=== PATIENT | female | born 1990 | race Caucasian/White ===

== ENCOUNTER 2016-06-28 21:30 | Emergency (ER) | payer MEDICAID, OTHER, SELFPAY ==
[2016-06-28 21:43] VITALS: BP 134/98
[2016-06-28] MEDS ORDERED: Sodium Chloride 0.9% 1,000 ML IV ONE (22:05)
[2016-06-28] MEDS ORDERED: Ondansetron 4 MG/2 ML SDV IVPUSH ONE ×2 (22:05→22:46)
[2016-06-28] MEDS ORDERED: Sodium Chloride 0.9% 10 ML Syringe FLUSH PRN (22:05)
--- NOTE | 2016-06-28 22:16 | EDM.PDOC ---
ED HPI GI/ABDOMINAL - General Chief Complaint: Gastrointestinal Problem Stated Complaint: NAUSEA SOME BACK PAIN Time Seen by Provider: 06/28/16 21:45 Source of Information: Reports: Patient History Limitations: Reports: No limitations - History of Present Illness INITIAL COMMENTS - FREE TEXT/NARRATIVE: Presents for evaluation and treatment of nausea and epigastric pain radiating to the back. Patient reports that her symptoms started today. She reports nausea , epigastric abdominal pain radiating to the back and one episode of vomiting. She describes the pain as a crampy abdominal pain. She reports her last bowel movement was around 10 AM. She denies any blood in her stool. She denies any fevers, dysuria or hematuria. She reports that her urine has been darker than normal. Patient reports that her last menstrual period was quite some time ago. She has a mirena in. She states that this is been in for 5 years without any complications. Reports that her daughter was ill with a 24-hour flu recently. This resolved on its own. Patient reports she is healthy with no medical conditions. She's not any medications. Patient denies any recent travel. She denies any antibiotic usage. Patient denies any surgeries to her abdomen. 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 Denies: Diarrhea, Hematochezia, Melena : Denies: dysuria, hematuria Musculoskeletal: Reports: back pain ED EXAM, GI/ABD - Physical Exam Exam: See Below Exam Limited By: No limitations General Appearance: alert, WD/WN, no apparent distress Throat/Mouth: Normal inspection, Normal lips, Normal voice, No airway compromise Respiratory/Chest: no respiratory distress, lungs clear, normal breath sounds Cardiovascular: normal peripheral pulses, regular rate, rhythm, no murmur GI/Abdominal: normal bowel sounds, tenderness (suprapubic, epigastric). No: McBurney's sign, Thomas's sign Back Exam: normal inspection. No: CVA tenderness (L), CVA tenderness (R) Neurological: alert, oriented, normal cognition Psychiatric: normal affect, normal mood Skin Exam: Warm, Dry, Normal color Course - Vital Signs Last Recorded V/S: Last Vital Signs Temp 36.4 C 06/28/16 21:40 Pulse 111 H 06/28/16 21:40 Resp 16 06/28/16 21:40 BP 134/98 H 06/28/16 21:40 Pulse Ox 100 06/28/16 21:40 - Orders/Labs/Meds Orders: Active Orders 24 hr Category Date Time Status Peripheral IV Care [RC] . DIRECTED Care 06/28/16 22:05 Active Sodium Chloride 0.9% [Saline Flush] Med 06/28/16 22:05 Active 10 ml FLUSH ASDIRECTED PRN Peripheral IV Insertion Adult [OM.PC] Routine Oth 06/28/16 22:05 Ordered Medication Orders Sodium Chloride (Saline Flush) 10 ml FLUSH ASDIRECTED PRN PRN Reason: Keep Vein Open Last Admin: 06/28/16 22:21 Dose: 10 ml Labs: Laboratory Tests 06/28/16 06/28/16 06/28/16 Range/Units 21:49 22:15 22:15 WBC 10.26 H (3.98-10.04) K/mm3 RBC 5.24 H (3.98-5.22) M/mm3 Hgb 15.9 H (11.2-15.7) gm/L Hct 46.9 H (34.1-44.9) % MCV 89.5 (79.4-94.8) fl MCH 30.3 (25.6-32.2) pg MCHC 33.9 (32.2-35.5) g/dl RDW Std Deviation 39.2 (36.4-46.3) fL Plt Count 167 L (182-369) K/mm3 MPV 9.2 L (9.4-12.3) fl Neut % (Auto) 71.0 (34.0-71.1) % Lymph % (Auto) 19.5 (19.3-51.7) % Newton % (Auto) 7.8 (4.7-12.5) % Eos % (Auto) 0.5 L (0.7-5.8) Baso % (Auto) 0.6 (0.1-1.2) % Neut # (Auto) 7.29 H (1.56-6.13) K/mm3 Lymph # (Auto) 2.00 (1.18-3.74) K/mm3 Newton # (Auto) 0.80 H (0.24-0.36) K/mm3 Eos # (Auto) 0.05 (0.04-0.36) K/mm3 Baso # (Auto) 0.06 (0.01-0.08) K/mm3 Manual Slide Review Abnormal smear Sodium 133 L (136-145) mEq/L Potassium 3.8 (3.5-5.1) mEq/L Chloride 98 (98-107) mEq/L Carbon Dioxide 27 (21-32) mEq/L Anion Gap 11.8 (5-15) BUN 13 (7-18) mg/dL Creatinine 0.7 (0.55-1.02) mg/dL Est Cr Clr Drug Dosing 99.41 mL/min Estimated GFR (MDRD) > 60 (>60) mL/min BUN/Creatinine Ratio 18.6 H (14-18) Glucose 141 H (74-106) mg/dL Calcium 8.8 (8.5-10.1) mg/dL Total Bilirubin 0.3 (0.2-1.0) mg/dL GGT (5-55) U/L AST 157 H (15-37) U/L ALT 388 H (14-59) U/L Alkaline Phosphatase 150 H (46-116) U/L C-Reactive Protein 1.4 H* (<1.0) mg/dL Total Protein 8.1 (6.4-8.2) g/dl Albumin 4.0 (3.4-5.0) g/dl Globulin 4.1 gm/dL Albumin/Globulin Ratio 1.0 (1-2) Lipase (73-393) U/L HCG, Quant mIU/mL Urine Color Yellow (Yellow) Urine Appearance Slt cloudy H (Clear) Urine pH 6.0 (5.0-8.0) Ur Specific [place] > or = 1.030 (1.005-1.030) Urine Protein 2+ H (Negative) Urine Glucose (UA) Negative (Negative) Urine Ketones Negative (Negative) Urine Occult Blood Negative (Negative) Urine Nitrite Negative (Negative) Urine Bilirubin Negative (Negative) Urine Urobilinogen 0.2 (0.2-1.0) Ur Leukocyte Esterase Negative (Negative) Urine RBC Not seen (0-5) /hpf Urine WBC 0-5 (0-5) /hpf Ur Epithelial Cells Not Reportable Ur Squamous Epith Cells 10-20 H (0-5) /hpf Urine Bacteria Few (FEW) /hpf Urine Mucus Moderate H (FEW) /hpf 06/28/16 06/28/16 06/28/16 Range/Units 22:15 22:15 22:15 WBC (3.98-10.04) K/mm3 RBC (3.98-5.22) M/mm3 Hgb (11.2-15.7) gm/L Hct (34.1-44.9) % MCV (79.4-94.8) fl MCH (25.6-32.2) pg MCHC (32.2-35.5) g/dl RDW Std Deviation (36.4-46.3) fL Plt Count (182-369) K/mm3 MPV (9.4-12.3) fl Neut % (Auto) (34.0-71.1) % Lymph % (Auto) (19.3-51.7) % Newton % (Auto) (4.7-12.5) % Eos % (Auto) (0.7-5.8) Baso % (Auto) (0.1-1.2) % Neut # (Auto) (1.56-6.13) K/mm3 Lymph # (Auto) (1.18-3.74) K/mm3 [place] # (Auto) (0.24-0.36) K/mm3 Eos # (Auto) (0.04-0.36) K/mm3 Baso # (Auto) (0.01-0.08) K/mm3 Manual Slide Review Sodium (136-145) mEq/L Potassium (3.5-5.1) mEq/L Chloride (98-107) mEq/L Carbon Dioxide (21-32) mEq/L Anion Gap (5-15) BUN (7-18) mg/dL Creatinine (0.55-1.02) mg/dL Est Cr Clr Drug Dosing mL/min Estimated GFR (MDRD) (>60) mL/min BUN/Creatinine Ratio (14-18) Glucose (74-106) mg/dL Calcium (8.5-10.1) mg/dL Total Bilirubin (0.2-1.0) mg/dL GGT 94 H (5-55) U/L AST (15-37) U/L ALT (14-59) U/L Alkaline Phosphatase (46-116) U/L C-Reactive Protein (<1.0) mg/dL Total Protein (6.4-8.2) g/dl Albumin (3.4-5.0) g/dl Globulin gm/dL Albumin/Globulin Ratio (1-2) Lipase 177 (73-393) U/L HCG, Quant < 1.0 mIU/mL Urine Color (Yellow) Urine Appearance (Clear) Urine pH (5.0-8.0) Ur Specific [place] (1.005-1.030) Urine Protein (Negative) Urine Glucose (UA) (Negative) Urine Ketones (Negative) Urine Occult Blood (Negative) Urine Nitrite (Negative) Urine Bilirubin (Negative) Urine Urobilinogen (0.2-1.0) Ur Leukocyte Esterase (Negative) Urine RBC (0-5) /hpf Urine WBC (0-5) /hpf Ur Epithelial Cells Ur Squamous Epith Cells (0-5) /hpf Urine Bacteria (FEW) /hpf Urine Mucus (FEW) /hpf Meds: Medications Generic Name Dose Route Start Last Admin Trade Name Freq PRN Reason Stop Dose Admin Sodium Chloride 10 ml 06/28/16 22:05 06/28/16 22:21 Saline Flush FLUSH 10 ml ASDIRECTED PRN Administration Keep Vein Open Discontinued Medications Generic Name Dose Route Start Last Admin Trade Name Freq PRN Reason Stop Dose Admin Sodium Chloride 1,000 mls @ 999 mls/hr 06/28/16 22:05 06/28/16 22:21 Normal Saline IV 06/28/16 23:05 999 mls/hr ONETIME ONE Administration Ketorolac Tromethamine 30 mg 06/28/16 22:46 06/28/16 22:53 Toradol IVPUSH 06/28/16 22:47 30 mg ONETIME ONE Administration Ondansetron HCl 4 mg 06/28/16 22:05 06/28/16 22:20 Zofran IVPUSH 06/28/16 22:06 4 mg ONETIME ONE Administration Ondansetron HCl 4 mg 06/28/16 22:46 06/28/16 22:51 Zofran IVPUSH 06/28/16 22:47 4 mg ONETIME ONE Administration - Re-Assessments/Exams Free Text/Narrative Re-Assessment/Exam: 06/28/16 23:23 The patient's lab studies have returned. White blood cell count is mildly elevated at 10.26, hemoglobin is 15.9 and platelets are 167. Sodium is 133, potassium is 3.8 chloride is 98. Glucose is 141. UA has only 2+ protein. Negative for leukocytes and nitrates. CBC is mildly elevated 1.4. AST is elevated at 157, ALT is elevated at 388 and alkaline phosphatase is elevated at 150. GGT is mildly elevated at 94. Total bilirubin is normal at 0.3. Lipase is within normal limits a 1.77. HCG is negative at less than 1.0. I discussed the lab results with the patient. I feel she likely has a viral gastroenteritis. She should take Zofran as she has at home for nausea. Her symptoms should resolve within the next few days. I will have her followup with her primary care provider the end of this week to ensure that her liver enzymes are resolving and to make sure we're not missing any pathology associated with her gallbladder. She feels comfortable with this plan. Discharge instructions as documented. Departure - Departure Time of Disposition: 23:25 Disposition: Home, Self-Care 01 Condition: fair Clinical Impression: Gastroenteritis Referrals: PCP,None [Primary Care Provider] - Kaylie Helm SURFACING TECHNICIAN [Ordering Only Provider] - Forms: ED Department Discharge Additional Instructions: Rest and drink plenty of fluids. Zofran one 4mg tab sublingual every 6 hours as needed for nausea. [id number] ibuprofen as needed for pain relief. Avoid tylenol as this can be hard on your liver. Follow up with your primary care provider the end of this week. Please return to the ER should your symptoms change or worsen. - My Orders Last 24 Hours: My Active Orders 06/28/16 22:05 Peripheral IV Care [RC] . DIRECTED Sodium Chloride 0.9% [Saline Flush] 10 ml FLUSH ASDIRECTED PRN Peripheral IV Insertion Adult [OM.PC] Routine - Assessment/Plan Last 24 Hours: My Active Orders 06/28/16 22:05 Peripheral IV Care [RC] . DIRECTED Sodium Chloride 0.9% [Saline Flush] 10 ml FLUSH ASDIRECTED PRN Peripheral IV Insertion Adult [OM.PC] Routine
[2016-06-28] MEDS ORDERED: Ketorolac 30 MG/ML SDV IVPUSH ONE (22:46)
== END 2016-06-28 23:41 | disposition home or self-care (01) ==
LOC: JD.ED 21:30
DX: K52.9 Noninfective gastroenteritis and colitis, unspecified (principal); F17.200 Nicotine dependence, unspecified, uncomplicated
CPT/HCPCS: 36415; 80053; 81001; 82977; 83690; 84702; 85025; 86140; 96361; 96374; 96375; 96376; 99283; J1885; J2405; J7040; J7050; 99284

== ENCOUNTER 2016-09-11 19:05 | Emergency (ER) | payer MEDICAID, OTHER ==
[2016-09-11 19:17] VITALS: BP 142/107
--- NOTE | 2016-09-11 19:50 | EDM.PDOC ---
ED HPI GENERAL MEDICAL PROBLEM - General Chief Complaint: Skin Complaint Stated Complaint: BOIL ON FACE Time Seen by Provider: 09/11/16 19:12 Source of Information: Reports: Patient, RN Notes Reviewed History Limitations: Reports: No Limitations - History of Present Illness INITIAL COMMENTS - FREE TEXT/NARRATIVE: The patient states that she developed a skin boil to the medial aspect of her left eyebrow about 4 days ago. She states that she attempted to pop it by pinching it tonight, otherwise, she has been leaving it alone. The patient has a history of MRSA colonization. She had a lesion on her finger, which was swabbed in August 2015, and the swab returned as MRSA. She states that she uses antibacterial soap at home, otherwise, she does not have any identifiable risk factors for MRSA. No recent fever. The patient's PCP is Shantel Helm. 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: - Infectious Disease History Infectious Disease History: Reports: MRSA - Past Surgical History HEENT Surgical History: Reports: Naso-Sinus Surgery Social & Family History - Family History Family Medical History: Noncontributory - Tobacco Use Smoking Status *Q: Current Every Day Smoker Years of Tobacco use: 12 Packs/Tins Daily: 1 - Alcohol Use Alcohol Use History: Yes Days Per Week of Alcohol Use: 1 Number of Drinks Per Day: 2 Total Drinks Per Week: 2 Alcohol Use Frequency: Socially - Recreational Drug Use Recreational Drug Use: No - Living Situation & Occupation Living situation: Reports: Single, with Family (Daughter) Occupation: Employed ([employer]) ED ROS GENERAL - Review of Systems Review Of Systems: See Below Constitutional: Reports: No Symptoms HEENT: Reports: No Symptoms Respiratory: Reports: No Symptoms Cardiovascular: Reports: No Symptoms Endocrine: Reports: No Symptoms GI/Abdominal: Reports: No Symptoms : Reports: No Symptoms Musculoskeletal: Reports: No Symptoms Skin: Reports: No Symptoms Neurological: Reports: No Symptoms Psychiatric: Reports: No Symptoms Hematologic/Lymphatic: Reports: No Symptoms Immunologic: Reports: No Symptoms ED EXAM, SKIN/RASH Exam: See Below Exam Limited By: No Limitations General Appearance: Alert, WD/WN, No Apparent Distress Eye Exam: Bilateral Eye: Normal Inspection Ears: Normal External Exam, Hearing Grossly Normal Nose: Normal Inspection, No Blood Throat/Mouth: Normal Inspection, Normal Lips, Normal Voice, No Airway Compromise Head: Atraumatic, Normocephalic Neck: Normal Inspection, Supple, Full Range of Motion, Lymphadenopathy (L) ( slight). No: Lymphadenopathy (R) Skin: Warm, Dry, Intact, Normal Color, Other (Indurated furuncle within the medial aspect of the left eyebrow. No drainage.) Course - Vital Signs Last Recorded V/S: Last Vital Signs Temp 36.2 C 09/11/16 19:11 Pulse 102 H 09/11/16 19:11 Resp 16 09/11/16 19:11 BP 142/107 H 09/11/16 19:11 Pulse Ox 100 09/11/16 19:11 - Orders/Labs/Meds Labs: Laboratory Tests 09/11/16 Range/Units 19:33 MRSA (PCR) Positive H Meds: Medications Discontinued Medications Generic Name Dose Route Start Last Admin Trade Name Silverq PRN Reason Stop Dose Admin Trimethoprim/Sulfamethoxazole 1 tab 09/11/16 21:25 09/11/16 21:31 Septra Ds PO 09/11/16 21:26 1 tab ONETIME ONE Administration - Re-Assessments/Exams Free Text/Narrative Re-Assessment/Exam: 09/11/16 21:40 The patient's MRSA screen has returned positive. I will treat her furuncle with oral Bactrim x 1 week, and warm compresses. Departure - Departure Time of Disposition: 21:41 Disposition: Home, Self-Care 01 Condition: Good Clinical Impression: Furuncle of face, MRSA (methicillin resistant Staphylococcus aureus) colonization - Discharge Information Forms: ED Department Discharge Additional Instructions: You were seen in the emergency room for a boil within your left eyebrow. Your MRSA screen returned positive. This is likely because of your use of antibacterial soaps. You have been started on the antibiotic Bactrim. Take one tablet every 12 hours , as prescribed. Finish the entire prescription unless told otherwise by a doctor. Apply a warm compress to the boil for 10-15 minutes, 4-5 times a day, if possible. We recommend that you discard all of your antibacterial soaps. Wash with ordinary, non-antibacterial soap. Follow-up with your PCP, Shantel Helm, this coming week. If any other problems, please do not hesitate to return to the ER.
[2016-09-11] MEDS ORDERED: Sulfamethoxazole/Trimethoprim 800-160 MG Tab PO ONE (21:25)
== END 2016-09-11 22:00 | disposition home or self-care (01) ==
LOC: JD.ED 19:05
DX: L02.02 Furuncle of face (principal); F17.210 Nicotine dependence, cigarettes, uncomplicated; Z22.322 Carrier or suspected carrier of Methicillin resistant Staphylococcus aureus
CPT/HCPCS: 87641; 99283; A9270

== ENCOUNTER 2017-09-20 20:07 | Inpatient (IN) | payer MEDICAID, OTHER ==
[2017-09-20] MEDS ORDERED: Sodium Chloride 0.9% 10 ML Syringe FLUSH PRN (20:23)
[2017-09-20] MEDS ORDERED: SODIUM CHLORIDE 0.9% IV ONE (20:25)
[2017-09-20] MEDS ORDERED: VANCOMYCIN IV ONE (20:25)
[2017-09-20] MEDS ORDERED: Sodium Chloride 0.9% 1,000 ML IV SCH ×2 (20:30)
--- NOTE | 2017-09-20 20:33 | EDM.PDOC ---
ED HPI GENERAL MEDICAL PROBLEM - General Chief Complaint: Skin Complaint Stated Complaint: BUG BITE ON KNEE Time Seen by Provider: 09/20/17 20:20 Source of Information: Reports: Patient History Limitations: Reports: No Limitations - History of Present Illness INITIAL COMMENTS - FREE TEXT/NARRATIVE: Patient is a 27-year-old female presents ED complaining of an abscess to the right anterior medial knee. Patient reports the abscess started 4 days ago from a bug bite. 2 days ago she noted increased swelling in experience fever and chills. Yesterday experience nausea with increasing pain with ambulation. She is able to flex and extend at the knee with no increased pain noted. Redness has extended down her leg over the past few days. She has a history of MRSA 2. Patient denies any additional past medical history. She's not taking any medications currently. Surgical history noncontributory. Denies alcohol use. Denies any recreational drug use. She does smoke daily. Right Knee Pain Score (Numeric/FACES): 7 - Related Data Allergies Allergy/AdvReac Type Severity Reaction Status Date / Time No Known Allergies Allergy Verified 09/20/17 20:14 Home Meds: Home Meds Ibuprofen 600 mg PO ASDIRECTED PRN 09/20/17 [History] Past Medical History HEENT History: Reports: Impaired Vision Other HEENT History: Wears glasses [employer] History: Reports: Psychiatric History: Reports: Addiction - Infectious Disease History Infectious Disease History: Reports: MRSA - Past Surgical History HEENT Surgical History: Reports: Naso-Sinus Surgery Social & Family History - Family History Family Medical History: Noncontributory - Tobacco Use Smoking Status *Q: Current Every Day Smoker Years of Tobacco use: 14 Packs/Tins Daily: 0.5 - Caffeine Use Caffeine Use: Reports: Coffee, Energy Drinks, Tea - Recreational Drug Use Recreational Drug Use: Yes Drug Use in Last 12 Months: Yes Recreational Drug Type: Reports: Methamphetamine Recreational Drug Use Frequency: Daily - Living Situation & Occupation Living situation: Reports: Single, with Family (Daughter) 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 ED EXAM, SKIN/RASH Exam: See Below Exam Limited By: No Limitations General Appearance: Alert, WD/WN, No Apparent Distress Ears: Hearing Grossly Normal Nose: Normal Inspection Throat/Mouth: Normal Voice, No Airway Compromise Neck: Normal Inspection, Supple Respiratory/Chest: No Respiratory Distress, Lungs Clear, Normal Breath Sounds, No Accessory Muscle Use, Chest Non-Tender Cardiovascular: Normal Peripheral Pulses Extremities: Other (non draining lesion to the left medial/anterior knee with redness encompassing the anterior knee with extension of redness to foot. Pain with palpation. No pain with flexion/extension of the kne. ) Neurological: Alert, Oriented, CN II-XII Intact, Normal Cognition, No Motor/ Sensory Deficits Psychiatric: Normal Affect, Normal Mood Skin: Erythema, Increased Warmth, Wound/Incision Location, Skin: Lower Extremity, Right Associated features: Warmth, Tenderness, Swelling, Induration, Inflammation Course - Vital Signs Last Recorded V/S: Last Vital Signs Temp 98.8 F 09/22/17 08:02 Pulse 86 09/22/17 08:02 Resp 16 09/22/17 08:02 BP 118/77 09/22/17 08:02 Pulse Ox 97 09/22/17 08:02 - Orders/Labs/Meds Orders: Medication Orders Acetaminophen (Tylenol) 650 mg PO Q6H PRN PRN Reason: Pain/Fever Last Admin: 09/21/17 22:00 Dose: 650 mg Chlordiazepoxide HCl (Librium) 10 mg PO BID [facility] Last Admin: 09/21/17 21:40 Dose: 10 mg Admin: 09/21/17 09:25 Dose: 10 mg Enoxaparin Sodium (Lovenox) 40 mg SUBCUT DAILY [facility] Last Admin: 09/21/17 09:25 Dose: 40 mg Levofloxacin/Dextrose 750 mg/ (Premix) 150 mls @ 100 mls/hr IV Q24H [facility] Last Admin: 09/21/17 22:00 Dose: 100 mls/hr Vancomycin HCl 1 gm/ Sodium (Chloride) 250 mls @ 250 mls/hr IV Q12H [facility] Last Admin: 09/22/17 02:23 Dose: 250 mls/hr Infusion: 09/21/17 12:19 Dose: 250 mls/hr Admin: 09/21/17 11:19 Dose: 250 mls/hr Magnesium Sulfate 2 gm/ Premix 50 mls @ 25 mls/hr IV ONETIME ONE Stop: 09/22/17 08:59 Ibuprofen (Motrin) 600 mg PO Q8H PRN PRN Reason: Pain Lorazepam (Ativan) 2 mg IVPUSH Q4H PRN PRN Reason: Seizures Metoprolol Tartrate (Lopressor) 5 mg IVPUSH Q6H PRN PRN Reason: tachycardia Miscellaneous Information (Remove Patch) 0 ea TRDERM DAILY [facility] Nicotine (Habitrol) 14 mg TRDERM DAILY [facility] Last Admin: 09/21/17 14:59 Dose: Not Given Ondansetron HCl (Zofran) 4 mg IVPUSH Q8H PRN PRN Reason: Nausea Ondansetron HCl (Zofran Odt) 4 mg PO Q6H PRN PRN Reason: nausea, able to take PO Saccharomyces Boulardii (Florastor) 250 mg PO BID [facility] Last Admin: 09/21/17 21:41 Dose: 250 mg Admin: 09/21/17 11:19 Dose: 250 mg Sodium Chloride (Saline Flush) 10 ml FLUSH ASDIRECTED PRN PRN Reason: Keep Vein Open Vancomycin HCl (Pharmacy To Dose - Vancomycin) 1 dose .XX ASDIRECTED [facility] Labs: Laboratory Tests 09/20/17 09/20/17 09/20/17 Range/Units 21:00 21:30 21:30 WBC 10.13 H (3.98-10.04) K/mm3 RBC 3.51 L (3.98-5.22) M/mm3 Hgb 10.7 L (11.2-15.7) gm/L Hct 32.2 L (34.1-44.9) % MCV 91.7 (79.4-94.8) fl MCH 30.5 (25.6-32.2) pg MCHC 33.2 (32.2-35.5) g/dl RDW Std Deviation 38.5 (36.4-46.3) fL Plt Count 257 (182-369) K/mm3 MPV 9.1 L (9.4-12.3) fl Neut % (Auto) 75.6 H (34.0-71.1) % Lymph % (Auto) 15.4 L (19.3-51.7) % [place] % (Auto) 8.1 (4.7-12.5) % Eos % (Auto) 0.7 (0.7-5.8) Baso % (Auto) 0.1 (0.1-1.2) % Neut # (Auto) 7.66 H (1.56-6.13) K/mm3 Lymph # (Auto) 1.56 (1.18-3.74) K/mm3 [place] # (Auto) 0.82 H (0.24-0.36) K/mm3 Eos # (Auto) 0.07 (0.04-0.36) K/mm3 Baso # (Auto) 0.01 (0.01-0.08) K/mm3 Sodium 139 (136-145) mEq/L Potassium 3.6 (3.5-5.1) mEq/L Chloride 102 (98-107) mEq/L Carbon Dioxide 29 (21-32) mEq/L Anion Gap 11.6 (5-15) BUN 17 (7-18) mg/dL Creatinine 0.8 (0.55-1.02) mg/dL Est Cr Clr Drug Dosing 82.55 mL/min Estimated GFR (MDRD) > 60 (>60) mL/min BUN/Creatinine Ratio 21.3 H (14-18) Glucose 117 H (74-106) mg/dL Lactic Acid (0.4-2.0) mmol/L Calcium 8.7 (8.5-10.1) mg/dL Total Bilirubin 0.2 (0.2-1.0) mg/dL AST 18 (15-37) U/L ALT 26 (14-59) U/L Alkaline Phosphatase 78 (46-116) U/L C-Reactive Protein 11.0 H* (<1.0) mg/dL Total Protein 7.0 (6.4-8.2) g/dl Albumin 3.2 L (3.4-5.0) g/dl Globulin 3.8 gm/dL Albumin/Globulin Ratio 0.8 L (1-2) HCG, Qual (NEGATIVE) Urine Opiates Screen (NEGATIVE) Ur Buprenorphine Scrn (NEGATIVE) Ur Oxycodone Screen (NEGATIVE) Urine Methadone Screen (NEGATIVE) Ur Propoxyphene Screen (NEGATIVE) Ur Barbiturates Screen (NEGATIVE) Ur Tricyclics Screen (NEGATIVE) Ur Phencyclidine Scrn (NEGATIVE) Ur Amphetamine Screen (NEGATIVE) U Methamphetamines Scrn (NEGATIVE) U Benzodiazepines Scrn (NEGATIVE) U Cocaine Metab Screen (NEGATIVE) U Marijuana (THC) Screen (NEGATIVE) Ethyl Alcohol (0.00) gm% MRSA (PCR) Positive H 09/20/17 09/20/17 09/20/17 Range/Units 21:30 21:30 21:30 WBC (3.98-10.04) K/mm3 RBC (3.98-5.22) M/mm3 Hgb (11.2-15.7) gm/L Hct (34.1-44.9) % MCV (79.4-94.8) fl MCH (25.6-32.2) pg MCHC (32.2-35.5) g/dl RDW Std Deviation (36.4-46.3) fL Plt Count (182-369) K/mm3 MPV (9.4-12.3) fl Neut % (Auto) (34.0-71.1) % Lymph % (Auto) (19.3-51.7) % [place] % (Auto) (4.7-12.5) % Eos % (Auto) (0.7-5.8) Baso % (Auto) (0.1-1.2) % Neut # (Auto) (1.56-6.13) K/mm3 Lymph # (Auto) (1.18-3.74) K/mm3 [place] # (Auto) (0.24-0.36) K/mm3 Eos # (Auto) (0.04-0.36) K/mm3 Baso # (Auto) (0.01-0.08) K/mm3 Sodium (136-145) mEq/L Potassium (3.5-5.1) mEq/L Chloride (98-107) mEq/L Carbon Dioxide (21-32) mEq/L Anion Gap (5-15) BUN (7-18) mg/dL Creatinine (0.55-1.02) mg/dL Est Cr Clr Drug Dosing mL/min Estimated GFR (MDRD) (>60) mL/min BUN/Creatinine Ratio (14-18) Glucose (74-106) mg/dL Lactic Acid 0.5 (0.4-2.0) mmol/L Calcium (8.5-10.1) mg/dL Total Bilirubin (0.2-1.0) mg/dL AST (15-37) U/L ALT (14-59) U/L Alkaline Phosphatase (46-116) U/L C-Reactive Protein (<1.0) mg/dL Total Protein (6.4-8.2) g/dl Albumin (3.4-5.0) g/dl Globulin gm/dL Albumin/Globulin Ratio (1-2) HCG, Qual Negative (NEGATIVE) Urine Opiates Screen (NEGATIVE) Ur Buprenorphine Scrn (NEGATIVE) Ur Oxycodone Screen (NEGATIVE) Urine Methadone Screen (NEGATIVE) Ur Propoxyphene Screen (NEGATIVE) Ur Barbiturates Screen (NEGATIVE) Ur Tricyclics Screen (NEGATIVE) Ur Phencyclidine Scrn (NEGATIVE) Ur Amphetamine Screen (NEGATIVE) U Methamphetamines Scrn (NEGATIVE) U Benzodiazepines Scrn (NEGATIVE) U Cocaine Metab Screen (NEGATIVE) U Marijuana (THC) Screen (NEGATIVE) Ethyl Alcohol 0.00 (0.00) gm% MRSA (PCR) 09/20/17 Range/Units 22:55 WBC (3.98-10.04) K/mm3 RBC (3.98-5.22) M/mm3 Hgb (11.2-15.7) gm/L Hct (34.1-44.9) % MCV (79.4-94.8) fl MCH (25.6-32.2) pg MCHC (32.2-35.5) g/dl RDW Std Deviation (36.4-46.3) fL Plt Count (182-369) K/mm3 MPV (9.4-12.3) fl Neut % (Auto) (34.0-71.1) % Lymph % (Auto) (19.3-51.7) % [place] % (Auto) (4.7-12.5) % Eos % (Auto) (0.7-5.8) Baso % (Auto) (0.1-1.2) % Neut # (Auto) (1.56-6.13) K/mm3 Lymph # (Auto) (1.18-3.74) K/mm3 [place] # (Auto) (0.24-0.36) K/mm3 Eos # (Auto) (0.04-0.36) K/mm3 Baso # (Auto) (0.01-0.08) K/mm3 Sodium (136-145) mEq/L Potassium (3.5-5.1) mEq/L Chloride (98-107) mEq/L Carbon Dioxide (21-32) mEq/L Anion Gap (5-15) BUN (7-18) mg/dL Creatinine (0.55-1.02) mg/dL Est Cr Clr Drug Dosing mL/min Estimated GFR (MDRD) (>60) mL/min BUN/Creatinine Ratio (14-18) Glucose (74-106) mg/dL Lactic Acid (0.4-2.0) mmol/L Calcium (8.5-10.1) mg/dL Total Bilirubin (0.2-1.0) mg/dL AST (15-37) U/L ALT (14-59) U/L Alkaline Phosphatase (46-116) U/L C-Reactive Protein (<1.0) mg/dL Total Protein (6.4-8.2) g/dl Albumin (3.4-5.0) g/dl Globulin gm/dL Albumin/Globulin Ratio (1-2) HCG, Qual (NEGATIVE) Urine Opiates Screen Negative (NEGATIVE) Ur Buprenorphine Scrn Negative (NEGATIVE) Ur Oxycodone Screen Negative (NEGATIVE) Urine Methadone Screen Negative (NEGATIVE) Ur Propoxyphene Screen Negative (NEGATIVE) Ur Barbiturates Screen Negative (NEGATIVE) Ur Tricyclics Screen Negative (NEGATIVE) Ur Phencyclidine Scrn Negative (NEGATIVE) Ur Amphetamine Screen Presumptive positive H (NEGATIVE) U Methamphetamines Scrn Presumptive positive H (NEGATIVE) U Benzodiazepines Scrn Negative (NEGATIVE) U Cocaine Metab Screen Negative (NEGATIVE) U Marijuana (THC) Screen Presumptive positive H (NEGATIVE) Ethyl Alcohol (0.00) gm% MRSA (PCR) Meds: Medications Generic Name Dose Route Start Last Admin Trade Name Freq PRN Reason Stop Dose Admin Acetaminophen 650 mg 09/21/17 00:10 09/21/17 22:00 Tylenol PO 650 mg Q6H PRN Administration Pain/Fever Chlordiazepoxide HCl 10 mg 09/21/17 09:00 09/21/17 21:40 Librium PO 10 mg BID [facility] Administration Enoxaparin Sodium 40 mg 09/21/17 09:00 09/21/17 09:25 Lovenox SUBCUT 40 mg DAILY [facility] Administration Levofloxacin/Dextrose 750 mg/ 150 mls @ 100 mls/hr 09/21/17 23:00 07/05/18 22 :00 Premix IV 100 mls/hr Q24H [facility] Administration Vancomycin HCl 1 gm/ Sodium 250 mls @ 250 mls/hr 09/21/17 11:30 09/22/17 02: 23 Chloride IV 250 mls/hr Q12H [facility] Administration Magnesium Sulfate 2 gm/ Premix 50 mls @ 25 mls/hr 09/22/17 07:00 IV 09/22/17 08:59 ONETIME ONE Ibuprofen 600 mg 09/21/17 00:07 Motrin PO Q8H PRN Pain Lorazepam 2 mg 09/21/17 07:24 Ativan IVPUSH Q4H PRN Seizures Metoprolol Tartrate 5 mg 09/21/17 00:11 Lopressor IVPUSH Q6H PRN tachycardia Miscellaneous Information 0 ea 09/22/17 09:00 Remove Patch TRDERM DAILY [facility] Nicotine 14 mg 09/21/17 13:30 09/21/17 14:59 Habitrol TRDERM Not Given DAILY [facility] Ondansetron HCl 4 mg 09/21/17 00:07 Zofran IVPUSH Q8H PRN Nausea Ondansetron HCl 4 mg 09/21/17 11:39 Zofran Odt PO Q6H PRN nausea, able to take PO Saccharomyces Boulardii 250 mg 09/21/17 11:00 09/21/17 21:41 Florastor PO 250 mg BID [facility] Administration Sodium Chloride 10 ml 09/20/17 20:23 Saline Flush FLUSH ASDIRECTED PRN Keep Vein Open Vancomycin HCl 1 dose 09/21/17 10:45 Pharmacy To Dose - Vancomycin .XX ASDIRECTED [facility] Discontinued Medications Generic Name Dose Route Start Last Admin Trade Name Freq PRN Reason Stop Dose Admin Sodium Chloride 1,000 mls @ 999 mls/hr 09/20/17 20:30 09/20/17 21:28 Normal Saline IV 999 mls/hr ASDIRECTED [facility] Administration Sodium Chloride 1,000 mls @ 999 mls/hr 09/20/17 20:30 Normal Saline IV ASDIRECTED [facility] Vancomycin HCl 1 gm/ Sodium 250 mls @ 250 mls/hr 09/20/17 20:25 09/20/17 21: 51 Chloride IV 09/20/17 21:24 250 mls/hr ONETIME ONE Administration Vancomycin HCl 0.25 gm/ Sodium 250 mls @ 250 mls/hr 09/20/17 20:25 09/20/17 23:02 Chloride IV 09/20/17 21:24 Not Given ONETIME ONE Sodium Chloride Confirm 09/20/17 20:36 09/20/17 20:55 Normal Saline Administered 09/20/17 20:37 Not Given Dose 250 mls @ as directed .ROUTE .STK-MED ONE Sodium Chloride Confirm 09/20/17 22:09 09/20/17 23:14 Normal Saline Administered 09/20/17 22:10 Not Given Dose 250 mls @ as directed .ROUTE .STK-MED ONE Levofloxacin/Dextrose 750 mg/ 150 mls @ 100 mls/hr 09/21/17 00:12 09/21/17 01 :21 Premix IV 09/21/17 01:41 100 mls/hr ONETIME ONE Administration Vancomycin HCl Confirm 09/20/17 20:35 09/20/17 20:55 Vancocin Administered 09/20/17 20:36 Not Given Dose 1 gm .ROUTE .STK-MED ONE Vancomycin HCl Confirm 09/20/17 22:09 09/20/17 23:00 Vancomycin Administered 09/20/17 22:10 Not Given Dose 500 mg .ROUTE .STK-MED ONE - Re-Assessments/Exams Free Text/Narrative Re-Assessment/Exam: Patient meets sepsis criteria. She has a draining abscess to the right knee with extensive redness extending down to her foot. Peripheral IV started with 2 L of normal saline bolus. Ordered vancomycin 1250 mg IV. Initial labs and studies include CBC, chem 14, CRP, blood cultures 2, left gastric, and MRSA swab nasal. There is no active drainage from the abscess to the right knee. 2031 nursing staff has brought to my attention that the patient admits to IV methamphetamine use daily. This was not initially divulged to me during history taking. Patient admits using half gram every day. She injects into her arms bilaterally. Denies injecting into her feet, hands, legs, or any additional parts of her body. Labs have not resulted yet. It will not change my treatment course. Patient requires admission to the hospital. 09/20/17 21:50 I did discuss the patient with Dr. Gunn reconditioner hospitalist. She request x-ray of the right knee in addition to additional labs. I failed to order urine drug tox and serum EtOH upon notification that the patient is a IV drug user. This has been ordered. In addition urine hCG has been changed to serum. CIWAA assessment has been ordered. X-ray of the knee: reviewed with Dr. Cifuentes. No concerning findings for osteomyelitis. Final interpretation is pending. 2205 CIWAA Score: 0 Labs reviewed: White blood cell count 10.13, hemoglobin 10.7, neutrophil percent is 75.6, N #[id number]. Cancer panel essentially normal. CRP 11.0. Serum EtOH 0.00. HCG is pending. UA has not been obtained thus no urine drug tox screen. 2300 Lactic acid WNL. HCG Negative. Serology was positive for MRSA. 09/20/17 23:[address] Gunn. She has agreed to admit the patient to [facility] with telemetry. Request adding Levaquin 500 mg IV. Departure - Departure Time of Disposition: 22:49 Disposition: Admitted As Inpatient 64 Condition: Good Clinical Impression: Multiple-resistant Staphylococcus aureus infection, Methamphetamine addiction Cellulitis Qualifiers: Site of cellulitis: extremity Site of cellulitis of extremity: lower extremity Laterality: right Qualified Code(s): L03.115 - Cellulitis of right lower limb - Discharge Information
[2017-09-20] MEDS ORDERED: Vancomycin 1 GM AdvVial ONE (20:35)
[2017-09-20] MEDS ORDERED: Sodium Chloride 0.9% 250 ML ONE ×2 (20:36→22:09)
[2017-09-20] MEDS ORDERED: Vancomycin 500 MG SDV ONE (22:09)
[2017-09-20] MEDS ORDERED: Levofloxacin/Dextrose 5%-Water 500 MG in Premix Bag 1 BAG IV ONE (22:58)
[2017-09-21] MEDS ORDERED: Ondansetron 4 MG/2 ML SDV IVPUSH PRN (00:07)
[2017-09-21] MEDS ORDERED: Ibuprofen 600 MG Tab PO PRN (00:07)
[2017-09-21] MEDS ORDERED: Acetaminophen 325 MG Tab PO PRN (00:10)
[2017-09-21] MEDS ORDERED: Metoprolol Tartrate 5 MG/5 ML SDV IVPUSH PRN (00:11)
[2017-09-21] MEDS ORDERED: Levofloxacin/Dextrose 5%-Water 750 MG in Premix Bag 1 BAG IV ONE (00:12)
[2017-09-21] MEDS ORDERED: LORazepam 2 MG/ML SDV IVPUSH PRN (07:24)
--- NOTE | 2017-09-21 08:40 | CR ---
Right knee: Four views of the right knee were obtained. Comparison: No previous knee exam. Medial and lateral joint spaces are maintained in height. Good lateral view was not obtained. No discrete fracture or other bony abnormality is seen. Impression: 1. Good lateral view was not obtained. Within this limitation, no abnormality is appreciated on right knee exam. Diagnostic code #2
[2017-09-21] MEDS: Enoxaparin 40 MG/0.4 ML Syringe SUBCUT SCH (09:25)
[2017-09-21] MEDS: chlordiazePOXIDE 10 MG Cap PO SCH ×2 (09:25→21:40)
[2017-09-21] MEDS: Saccharomyces Boulardii (Probiotic) 250 MG Cap PO SCH ×2 (11:19→21:41)
[2017-09-21] MEDS ORDERED: Ondansetron 4 MG Tab.DIS PO PRN (11:39)
--- NOTE | 2017-09-21 13:18 | PCM.HP ---
H&P History of Present Illness - General Date of Service: 09/21/17 Admit Problem/Dx: Admission Diagnosis/Problem Admission Diagnosis/Problem Cellulitis Source of Information: Patient, Old Records, Provider, RN, RN Notes Reviewed History Limitations: Reports: No Limitations - History of Present Illness Initial Comments - Free Text/Narative: Mishel Weinstein is a 27 yo female who presented to our ED last night (09/20/17) with a bug bite on her right knee. She reports she noticed an abscess on the right anterior medial knee 4 days ago. Two days prior to presenting to the ED she noticed increased swelling and began to have fever and chills. the day before her ER visit she noticed nausea and worsening pain with ambulation. She can flex and extend the knee with no increased pa. She does have redness down her leg which is present for several days. Does have a history of MRSA infection 2. Denies any additional past history. Not taking any current medications. No surgical history. Denies any alcohol. She initially denies and IV drug use however later in her ED visit she does admit to IV methamphetamine use. he states she uses a half gram daily injecting it into either arm. Denies injecting into her feet, hands, legs, or any other body parts. in the ED temp was 98.8F. Pulse 108. Respirations 16. Blood pressure 134/ 85. Pulse ox 99%. Labs are obtained: WBC is elevated at 10.13. Hemoglobin low at 10.7. Hematocrit 32.2. She is normocytic. Platelet is good at 257, 000. Neutrophils elevated at 75.6%. sodium was good at 139. Potassium 3.6. Chloride 102. Carbon dioxide 29. Anion gap was good at 11.6. BUN is 17. Creatinine 0.8. GFR is greater than 60. Glucose is slightly high at 117. Calcium is 8.7. Total bilirubin 0.2. liver enzymes looked good with AST of 18, ALT at 26, alkaline phosphatase 78. CRP is quite high at 11. Protein good at 7.0. Albumin low at 3.2. MRSA screen was positive. Lactic acid was 0.5. Qualitative hCG was negative. Ethyl alcohol was 0.00. Urine drug screen was obtained and was positive for amphetamines, methamphetamine, and marijuana. This was sent for confirmation. She was started on Levaquin and vancomycin. She was given a 2 L saline bolus. There is no active drainage from the right knee. X-ray of the knee was obtained and reviewed by the ED providers. There is no concern for osteomyelitis noted. CIWA score was also obtained and was 0. he denies any medical or surgical history. She is a current every day smoker. She is a full code. Her PCP is Kaylie Helm. 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: Psychiatric History: Reports: Addiction Other Psychiatric History: IV meth user for the past three years - Infectious Disease History Infectious Disease History: Reports: MRSA - Past Surgical History HEENT Surgical History: Reports: Naso-Sinus Surgery Social & Family History - Family History Family Medical History: Noncontributory - Tobacco Use Smoking Status *Q: Current Every Day Smoker Years of Tobacco use: 15 Packs/Tins Daily: 0.5 - Caffeine Use Caffeine Use: Reports: Coffee, Energy Drinks, Soda, Tea - Recreational Drug Use Recreational Drug Use: Yes Drug Use in Last 12 Months: Yes Recreational Drug Type: Reports: Marijuana/Hashish, Methamphetamine Recreational Drug Use Frequency: Daily - Living Situation & Occupation Living situation: Reports: Single, with Family (Daughter) 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 Denies: Fever, Chills, Malaise, Weakness, Fatigue HEENT: Reports: No Symptoms. Denies: Eye Pain, Post Nasal Drip, Visual Changes Pulmonary: Reports: No Symptoms. Denies: Shortness of Breath, Wheezing, Pleuritic Chest Pain, Cough, Sputum Cardiovascular: Reports: No Symptoms. Denies: Chest Pain, Palpitations, Dyspnea on Exertion, Edema, Lightheadedness Gastrointestinal: Reports: No Symptoms. Denies: Abdominal Pain, Anorexia, Constipation, Diarrhea, Nausea, Vomiting Genitourinary: Reports: No Symptoms Musculoskeletal: Reports: No Symptoms. Denies: Neck Pain, Shoulder Pain, Arm Pain, Back Pain, Leg Pain, Joint Pain, Joint Swelling Skin: Reports: No Symptoms. Denies: Cyanosis Psychiatric: Reports: No Symptoms. Denies: Confusion, Depression Neurological: Reports: No Symptoms Hematologic/Lymphatic: Reports: No Symptoms Immunologic: Reports: No Symptoms Exam - Exam Exam: See Below - Vital Signs Vital Signs: Last Vital Signs Temp 98.6 F 09/21/17 11:23 Pulse 90 09/21/17 09:24 Resp 14 09/21/17 11:23 BP 122/79 09/21/17 11:23 Pulse Ox 97 09/21/17 09:24 Weight: 112 lb 11.2 oz - Exam Quality Assessment: DVT Prophylaxis General: Alert, Oriented, Cooperative. No: Mild Distress HEENT: Conjunctiva Clear, EACs Clear, EOMI, Hearing Intact, Mucosa Moist & [place] , Posterior Pharynx Clear, PERRLA. No: Nares Patent, Normal Nasal Septum Neck: Supple, Trachea Midline. No: JVD Lungs: Clear to Auscultation, Normal Respiratory Effort Cardiovascular: Regular Rate, Regular Rhythm GI/Abdominal Exam: Normal Bowel Sounds, Soft, Non-Tender, No Distention (Female) Exam: Deferred Rectal (Female) Exam: Deferred Back Exam: Normal Inspection, Full Range of Motion Extremities: Normal Inspection, Normal Range of Motion, Non-Tender, No Pedal Edema, Normal Capillary Refill Peripheral Pulses: 2+: Radial (L), Radial (R), Posterior Tibial (L), Posterior Tibial (R), Dorsalis Pedis (L), Dorsalis Pedis (R) Skin: Warm, Dry, Intact Neurological: Cranial Nerves Intact (grossly ) Neuro Extensive - Mental Status: Alert, Oriented x3, Normal Mood/Affect, Normal Cognition, Memory Intact Psychiatric: Alert, Normal Affect, Normal Mood - Patient Data Lab Results Last 24 hrs: Laboratory Results - last 24 hr 09/20/17 09/20/17 09/20/17 Range/Units 21:00 21:30 21:30 WBC 10.13 H (3.98-10.04) K/mm3 RBC 3.51 L (3.98-5.22) M/mm3 Hgb 10.7 L (11.2-15.7) gm/L Hct 32.2 L (34.1-44.9) % MCV 91.7 (79.4-94.8) fl MCH 30.5 (25.6-32.2) pg MCHC 33.2 (32.2-35.5) g/dl RDW Std Deviation 38.5 (36.4-46.3) fL Plt Count 257 (182-369) K/mm3 MPV 9.1 L (9.4-12.3) fl Neut % (Auto) 75.6 H (34.0-71.1) % Lymph % (Auto) 15.4 L (19.3-51.7) % [place] % (Auto) 8.1 (4.7-12.5) % Eos % (Auto) 0.7 (0.7-5.8) Baso % (Auto) 0.1 (0.1-1.2) % Neut # (Auto) 7.66 H (1.56-6.13) K/mm3 Lymph # (Auto) 1.56 (1.18-3.74) K/mm3 [place] # (Auto) 0.82 H (0.24-0.36) K/mm3 Eos # (Auto) 0.07 (0.04-0.36) K/mm3 Baso # (Auto) 0.01 (0.01-0.08) K/mm3 Sodium 139 (136-145) mEq/L Potassium 3.6 (3.5-5.1) mEq/L Chloride 102 (98-107) mEq/L Carbon Dioxide 29 (21-32) mEq/L Anion Gap 11.6 (5-15) BUN 17 (7-18) mg/dL Creatinine 0.8 (0.55-1.02) mg/dL Est Cr Clr Drug Dosing 82.55 mL/min Estimated GFR (MDRD) > 60 (>60) mL/min BUN/Creatinine Ratio 21.3 H (14-18) Glucose 117 H (74-106) mg/dL Lactic Acid (0.4-2.0) mmol/L Calcium 8.7 (8.5-10.1) mg/dL Magnesium (1.8-2.4) mg/dl Total Bilirubin 0.2 (0.2-1.0) mg/dL AST 18 (15-37) U/L ALT 26 (14-59) U/L Alkaline Phosphatase 78 (46-116) U/L C-Reactive Protein 11.0 H* (<1.0) mg/dL Total Protein 7.0 (6.4-8.2) g/dl Albumin 3.2 L (3.4-5.0) g/dl Globulin 3.8 gm/dL Albumin/Globulin Ratio 0.8 L (1-2) HCG, Qual (NEGATIVE) Urine Opiates Screen (NEGATIVE) Ur Buprenorphine Scrn (NEGATIVE) Ur Oxycodone Screen (NEGATIVE) Urine Methadone Screen (NEGATIVE) Ur Propoxyphene Screen (NEGATIVE) Ur Barbiturates Screen (NEGATIVE) Ur Tricyclics Screen (NEGATIVE) Ur Phencyclidine Scrn (NEGATIVE) Ur Amphetamine Screen (NEGATIVE) U Methamphetamines Scrn (NEGATIVE) U Benzodiazepines Scrn (NEGATIVE) U Cocaine Metab Screen (NEGATIVE) U Marijuana (THC) Screen (NEGATIVE) Ethyl Alcohol (0.00) gm% MRSA (PCR) Positive H 09/20/17 09/20/17 09/20/17 Range/Units 21:30 21:30 21:30 WBC (3.98-10.04) K/mm3 RBC (3.98-5.22) M/mm3 Hgb (11.2-15.7) gm/L Hct (34.1-44.9) % MCV (79.4-94.8) fl MCH (25.6-32.2) pg MCHC (32.2-35.5) g/dl RDW Std Deviation (36.4-46.3) fL Plt Count (182-369) K/mm3 MPV (9.4-12.3) fl Neut % (Auto) (34.0-71.1) % Lymph % (Auto) (19.3-51.7) % [place] % (Auto) (4.7-12.5) % Eos % (Auto) (0.7-5.8) Baso % (Auto) (0.1-1.2) % Neut # (Auto) (1.56-6.13) K/mm3 Lymph # (Auto) (1.18-3.74) K/mm3 [place] # (Auto) (0.24-0.36) K/mm3 Eos # (Auto) (0.04-0.36) K/mm3 Baso # (Auto) (0.01-0.08) K/mm3 Sodium (136-145) mEq/L Potassium (3.5-5.1) mEq/L Chloride (98-107) mEq/L Carbon Dioxide (21-32) mEq/L Anion Gap (5-15) BUN (7-18) mg/dL Creatinine (0.55-1.02) mg/dL Est Cr Clr Drug Dosing mL/min Estimated GFR (MDRD) (>60) mL/min BUN/Creatinine Ratio (14-18) Glucose (74-106) mg/dL Lactic Acid 0.5 (0.4-2.0) mmol/L Calcium (8.5-10.1) mg/dL Magnesium (1.8-2.4) mg/dl Total Bilirubin (0.2-1.0) mg/dL AST (15-37) U/L ALT (14-59) U/L Alkaline Phosphatase (46-116) U/L C-Reactive Protein (<1.0) mg/dL Total Protein (6.4-8.2) g/dl Albumin (3.4-5.0) g/dl Globulin gm/dL Albumin/Globulin Ratio (1-2) HCG, Qual Negative (NEGATIVE) Urine Opiates Screen (NEGATIVE) Ur Buprenorphine Scrn (NEGATIVE) Ur Oxycodone Screen (NEGATIVE) Urine Methadone Screen (NEGATIVE) Ur Propoxyphene Screen (NEGATIVE) Ur Barbiturates Screen (NEGATIVE) Ur Tricyclics Screen (NEGATIVE) Ur Phencyclidine Scrn (NEGATIVE) Ur Amphetamine Screen (NEGATIVE) U Methamphetamines Scrn (NEGATIVE) U Benzodiazepines Scrn (NEGATIVE) U Cocaine Metab Screen (NEGATIVE) U Marijuana (THC) Screen (NEGATIVE) Ethyl Alcohol 0.00 (0.00) gm% MRSA (PCR) 09/20/17 09/21/17 09/21/17 Range/Units 22:55 05:57 05:57 WBC 6.72 (3.98-10.04) K/mm3 RBC 3.36 L (3.98-5.22) M/mm3 Hgb 10.1 L (11.2-15.7) gm/L Hct 31.2 L (34.1-44.9) % MCV 92.9 (79.4-94.8) fl MCH 30.1 (25.6-32.2) pg MCHC 32.4 (32.2-35.5) g/dl RDW Std Deviation 39.1 (36.4-46.3) fL Plt Count 211 (182-369) K/mm3 MPV 9.0 L (9.4-12.3) fl Neut % (Auto) 52.6 (34.0-71.1) % Lymph % (Auto) 35.9 (19.3-51.7) % [place] % (Auto) 9.5 (4.7-12.5) % Eos % (Auto) 1.8 (0.7-5.8) Baso % (Auto) 0.1 (0.1-1.2) % Neut # (Auto) 3.53 (1.56-6.13) K/mm3 Lymph # (Auto) 2.41 (1.18-3.74) K/mm3 [place] # (Auto) 0.64 H (0.24-0.36) K/mm3 Eos # (Auto) 0.12 (0.04-0.36) K/mm3 Baso # (Auto) 0.01 (0.01-0.08) K/mm3 Sodium 139 (136-145) mEq/L Potassium 3.5 (3.5-5.1) mEq/L Chloride 105 (98-107) mEq/L Carbon Dioxide 25 (21-32) mEq/L Anion Gap 12.5 (5-15) BUN 10 (7-18) mg/dL Creatinine 0.6 (0.55-1.02) mg/dL Est Cr Clr Drug Dosing 111.65 mL/min Estimated GFR (MDRD) > 60 (>60) mL/min BUN/Creatinine Ratio 16.7 (14-18) Glucose 98 (74-106) mg/dL Lactic Acid (0.4-2.0) mmol/L Calcium 7.7 L (8.5-10.1) mg/dL Magnesium (1.8-2.4) mg/dl Total Bilirubin (0.2-1.0) mg/dL AST (15-37) U/L ALT (14-59) U/L Alkaline Phosphatase (46-116) U/L C-Reactive Protein 7.9 H* (<1.0) mg/dL Total Protein (6.4-8.2) g/dl Albumin (3.4-5.0) g/dl Globulin gm/dL Albumin/Globulin Ratio (1-2) HCG, Qual (NEGATIVE) Urine Opiates Screen Negative (NEGATIVE) Ur Buprenorphine Scrn Negative (NEGATIVE) Ur Oxycodone Screen Negative (NEGATIVE) Urine Methadone Screen Negative (NEGATIVE) Ur Propoxyphene Screen Negative (NEGATIVE) Ur Barbiturates Screen Negative (NEGATIVE) Ur Tricyclics Screen Negative (NEGATIVE) Ur Phencyclidine Scrn Negative (NEGATIVE) Ur Amphetamine Screen Presumptive positive H (NEGATIVE) U Methamphetamines Scrn Presumptive positive H (NEGATIVE) U Benzodiazepines Scrn Negative (NEGATIVE) U Cocaine Metab Screen Negative (NEGATIVE) U Marijuana (THC) Screen Presumptive positive H (NEGATIVE) Ethyl Alcohol (0.00) gm% MRSA (PCR) 09/21/17 09/21/17 Range/Units 05:57 05:57 WBC (3.98-10.04) K/mm3 RBC (3.98-5.22) M/mm3 Hgb (11.2-15.7) gm/L Hct (34.1-44.9) % MCV (79.4-94.8) fl MCH (25.6-32.2) pg MCHC (32.2-35.5) g/dl RDW Std Deviation (36.4-46.3) fL Plt Count (182-369) K/mm3 MPV (9.4-12.3) fl Neut % (Auto) (34.0-71.1) % Lymph % (Auto) (19.3-51.7) % [place] % (Auto) (4.7-12.5) % Eos % (Auto) (0.7-5.8) Baso % (Auto) (0.1-1.2) % Neut # (Auto) (1.56-6.13) K/mm3 Lymph # (Auto) (1.18-3.74) K/mm3 [place] # (Auto) (0.24-0.36) K/mm3 Eos # (Auto) (0.04-0.36) K/mm3 Baso # (Auto) (0.01-0.08) K/mm3 Sodium (136-145) mEq/L Potassium (3.5-5.1) mEq/L Chloride (98-107) mEq/L Carbon Dioxide (21-32) mEq/L Anion Gap (5-15) BUN (7-18) mg/dL Creatinine (0.55-1.02) mg/dL Est Cr Clr Drug Dosing mL/min Estimated GFR (MDRD) (>60) mL/min BUN/Creatinine Ratio (14-18) Glucose (74-106) mg/dL Lactic Acid 0.3 L (0.4-2.0) mmol/L Calcium (8.5-10.1) mg/dL Magnesium 2.0 (1.8-2.4) mg/dl Total Bilirubin (0.2-1.0) mg/dL AST (15-37) U/L ALT (14-59) U/L Alkaline Phosphatase (46-116) U/L C-Reactive Protein (<1.0) mg/dL Total Protein (6.4-8.2) g/dl Albumin (3.4-5.0) g/dl Globulin gm/dL Albumin/Globulin Ratio (1-2) HCG, Qual (NEGATIVE) Urine Opiates Screen (NEGATIVE) Ur Buprenorphine Scrn (NEGATIVE) Ur Oxycodone Screen (NEGATIVE) Urine Methadone Screen (NEGATIVE) Ur Propoxyphene Screen (NEGATIVE) Ur Barbiturates Screen (NEGATIVE) Ur Tricyclics Screen (NEGATIVE) Ur Phencyclidine Scrn (NEGATIVE) Ur Amphetamine Screen (NEGATIVE) U Methamphetamines Scrn (NEGATIVE) U Benzodiazepines Scrn (NEGATIVE) U Cocaine Metab Screen (NEGATIVE) U Marijuana (THC) Screen (NEGATIVE) Ethyl Alcohol (0.00) gm% MRSA (PCR) Result Diagrams: 09/21/17 05:57 09/21/17 05:57 - Problem List (1) Cellulitis SNOMED Code(s): 453861011 ICD Code: L03.90 - CELLULITIS, UNSPECIFIED Status: Acute Priority: High Current Visit: Yes Qualifiers: Site of cellulitis: extremity Site of cellulitis of extremity: lower extremity Laterality: right Qualified Code(s): L03.115 - Cellulitis of right lower limb (2) Methamphetamine addiction SNOMED Code(s): 788812779 ICD Code: F15.20 - OTHER STIMULANT DEPENDENCE, UNCOMPLICATED Status: Acute Priority: High Current Visit: Yes (3) Tobacco use disorder SNOMED Code(s): 376622867 ICD Code: F17.200 - NICOTINE DEPENDENCE, UNSPECIFIED, UNCOMPLICATED Status : Chronic Priority: Medium Current Visit: Yes (4) Multiple-resistant Staphylococcus aureus infection SNOMED Code(s): 362189310 ICD Code: B95.7 - OTH STAPHYLOCOCCUS THE CAUSE OF DISEASES CLASSD ELSWHR Status: Acute Priority: High Current Visit: Yes Problem List Initiated/Reviewed/Updated: Yes Orders Last 24hrs: Active Orders 24 hr Category Date Time Status Patient Status [ADT] Routine ADT 09/20/17 23:12 Active CIWAA Assessment [RC] Q4HR Care 09/20/17 21:45 Active Cardiac Monitoring [RC] CONTINUOUS Care 09/21/17 11:40 Active Height and Weight [RC] DAILY Care 09/21/17 11:39 Active Intake and Output [RC] QSHIFT Care 09/21/17 11:40 Active May Shower [RC] ASDIRECTED Care 09/21/17 11:39 Active Notify Provider Consults [RC] ASDIRECTED Care 09/21/17 11:37 Active Oxygen Therapy [RC] PRN Care 09/21/17 11:39 Active Pulse Oximetry [RC] PRN Care 09/21/17 11:40 Active Up ad [place]ly [RC] ASDIRECTED Care 09/21/17 11:39 Active VTE/DVT Education [RC] PER UNIT ROUTINE Care 09/21/17 11:39 Active Vital Signs [RC] Q4H Care 09/21/17 11:39 Active Consult for Substance Abuse [CONS] Routine Cons 09/21/17 11:37 Active Consult to Physician [CONS] Routine Cons 09/21/17 11:37 Active Consult to [employer]elite [employer] [CONS] Routine Cons 09/21/17 11:37 Active Regular Diet [DIET] Diet 09/21/17 Lunch Active BASIC METABOLIC PANEL,BMP [CHEM] AM Lab 09/22/17 05:11 Ordered BASIC METABOLIC PANEL,BMP [CHEM] AM Lab 09/23/17 05:11 Ordered BASIC METABOLIC PANEL,BMP [CHEM] AM Lab 09/24/17 05:11 Ordered BASIC METABOLIC PANEL,BMP [CHEM] AM Lab 09/25/17 05:11 Ordered CARBOXY-THC (GCMS) Stat Lab 09/20/17 22:55 Received CBC WITH AUTO DIFF [HEME] AM Lab 09/22/17 05:11 Ordered CBC WITH AUTO DIFF [HEME] AM Lab 09/23/17 05:11 Ordered CBC WITH AUTO DIFF [HEME] AM Lab 09/24/17 05:11 Ordered CBC WITH AUTO DIFF [HEME] AM Lab 09/25/17 05:11 Ordered CRP [C-REACTIVE PROTEIN] [CHEM] AM Lab 09/22/17 05:11 Ordered CRP [C-REACTIVE PROTEIN] [CHEM] AM Lab 09/23/17 05:11 Ordered CRP [C-REACTIVE PROTEIN] [CHEM] AM Lab 09/24/17 05:11 Ordered CRP [C-REACTIVE PROTEIN] [CHEM] AM Lab 09/25/17 05:11 Ordered CULTURE BLOOD [BC] Stat Lab 09/20/17 21:30 Received CULTURE BLOOD [BC] Stat Lab 09/20/17 21:40 Received CULTURE WOUND [RM] Routine Lab 09/21/17 07:23 Ordered DRUG SCREEN, URINE REFLEX [URCHEM] Stat Lab 09/20/17 22:55 Ordered MAGNESIUM [CHEM] AM Lab 09/22/17 05:11 Ordered MAGNESIUM [CHEM] AM Lab 09/23/17 05:11 Ordered MAGNESIUM [CHEM] AM Lab 09/24/17 05:11 Ordered MAGNESIUM [CHEM] AM Lab 09/25/17 05:11 Ordered METH-RESIST S.AUR,MRSA BY PCR [MOLEC] Stat Lab 09/20/17 21:00 Ordered MISC TEST Stat Lab 09/20/17 22:55 Received VANCOMYCIN TROUGH [CHEM] Timed Lab 09/22/17 23:00 Ordered Acetaminophen [Tylenol] Med 09/21/17 00:10 Active 650 mg PO Q6H PRN Enoxaparin [Lovenox] Med 09/21/17 09:00 Active 40 mg SUBCUT DAILY Ibuprofen [Motrin] Med 09/21/17 00:07 Active 600 mg PO Q8H PRN LORazepam [Ativan] Med 09/21/17 07:24 Active 2 mg IVPUSH Q4H PRN Levofloxacin/Dextrose 5%-Water [Levaquin in D5W 750 MG/ Med 09/21/17 23:00 Active 150 ML] 750 mg Premix Bag 1 bag IV Q24H Metoprolol Tartrate [Lopressor] Med 09/21/17 00:11 Active 5 mg IVPUSH Q6H PRN Ondansetron [Zofran ODT] Med 09/21/17 11:39 Active 4 mg PO Q6H PRN Ondansetron [Zofran] Med 09/21/17 00:07 Active 4 mg IVPUSH Q8H PRN Saccharomyces Boulardii [Florastor] Med 09/21/17 11:00 Active 250 mg PO BID Sodium Chloride 0.9% [Saline Flush] Med 09/20/17 20:23 Active 10 ml FLUSH ASDIRECTED PRN Vancomycin Pharmacy to Dose [Pharmacy to Dose - Med 09/21/17 10:45 Active Vancomycin] 1 dose .XX ASDIRECTED Vancomycin [Vancocin] 1 gm Med 09/21/17 11:30 Active Sodium Chloride 0.9% [Normal Saline] 250 ml IV Q12H chlordiazePOXIDE [Librium] Med 09/21/17 09:00 Active 10 mg PO BID Blood Culture x2 Reflex Set [OM.PC] Stat Ot 09/20/17 20:23 Ordered Peripheral IV Insertion Adult [OM.PC] Routine Oth 09/20/17 20:23 Ordered Resuscitation Status Routine Resus Stat 09/21/17 00:13 Ordered Medication Orders Acetaminophen (Tylenol) 650 mg PO Q6H PRN PRN Reason: Pain/Fever Chlordiazepoxide HCl (Librium) 10 mg PO BID [facility] Last Admin: 09/21/17 09:25 Dose: 10 mg Enoxaparin Sodium (Lovenox) 40 mg SUBCUT DAILY [facility] Last Admin: 09/21/17 09:25 Dose: 40 mg Levofloxacin/Dextrose 750 mg/ (Premix) 150 mls @ 100 mls/hr IV Q24H [facility] Vancomycin HCl 1 gm/ Sodium (Chloride) 250 mls @ 250 mls/hr IV Q12H [facility] Last Admin: 09/21/17 11:19 Dose: 250 mls/hr Ibuprofen (Motrin) 600 mg PO Q8H PRN PRN Reason: Pain Lorazepam (Ativan) 2 mg IVPUSH Q4H PRN PRN Reason: Seizures Metoprolol Tartrate (Lopressor) 5 mg IVPUSH Q6H PRN PRN Reason: tachycardia Ondansetron HCl (Zofran) 4 mg IVPUSH Q8H PRN PRN Reason: Nausea Ondansetron HCl (Zofran Odt) 4 mg PO Q6H PRN PRN Reason: nausea, able to take PO Saccharomyces Boulardii (Florastor) 250 mg PO BID [facility] Last Admin: 09/21/17 11:19 Dose: 250 mg Sodium Chloride (Saline Flush) 10 ml FLUSH ASDIRECTED PRN PRN Reason: Keep Vein Open Vancomycin HCl (Pharmacy To Dose - Vancomycin) 1 dose .XX ASDIRECTED [facility] Assessment/Plan Comment:: I/P: Acute: Cellulitis of right leg, improving -Apparent bug bite just below right patella region -Erythema, redness, swelling down right leg -Reports bug bite 4 days prior, chills and fever 2 days prior, nausea pain and swelling 1 day prior -Hx/o MRSA x2 -Current IV drug user but denies injections in her legs -Wound is not draining - culture if it starts -Levaquin and vancomycin started in ED - Continue -Probiotic -X-ray in ED shows no concerns for osteomyelitis -Consider GS consult if no improvement -Tylenol/NSAIDs for pain/fever -Positive MRSA screen -WBC 10.13-->6.72 -CRP 11-->7.9 -Blood cultures pending Methamphetamine use -Reports daily 0.5mg methamphetamine use injected into her arms -Reports last dose was 09/19/17 -UDS positive for [place], methamphetamine, marijuana - sent for confirmation -Librium -CIWA protocol -2mg ativan PRN for seizure control -SW/Seven/LAC consult -Patient is open to talking about drug use and states she would like to talk to someone -Educated on medical dangers of IV drug use Tobacco use disorder -Daily nicotine patch -Tobacco cessation counseling Chronic: None Plan Admit to medical floor on telemetry She is ambulatory so will hold off PT/OT for now Spiritual care consult Routine AM labs Other orders as above DVT Prophylaxis: Lovenox Code status: Full code; PCP: Kaylie Helm NP
[2017-09-21] MEDS: Nicotine 14 MG/24 Hr Patch TRDERM SCH (14:59)
[2017-09-21] MEDS ORDERED: Levofloxacin/Dextrose 5%-Water 750 MG in Premix Bag 1 BAG IV SCH (23:00)
--- NOTE | 2017-09-22 06:03 | CONS ---
CONSULTING PHYSICIAN: Rui Amezcua MD DATE OF CONSULTATION: 09/21/2017 This is a 60-minute inpatient clinical event. IDENTIFICATION: The patient is a 27-year-old female who is admitted to the inpatient medical and [facility] in [place], [place]. She is seen for psychiatric evaluation. CHIEF COMPLAINT: "They said it was cellulitis. I think a bug bit me and it got infected." HISTORY OF PRESENT ILLNESS: The patient is a 27-year-old female who reports that she had been in pretty good health until about a week before when she started getting cellulitis in her right leg. The condition became so severe that the patient was eventually admitted to the inpatient medical unit at [facility] on 09/20/2017. The patient states that complicating her clinical situation is the fact that she has been "using that off and on for the past 3 years." She states that she has "been shooting it" and last used it about "4 days ago." She states that the longest sobriety that she has that has been problematic for her has not been for more than "3 weeks or so." The patient is stating, "I just don't want to do it anymore" in terms of the methamphetamine abuse and dependence, and she states also "I'm ready to be done with it." She states she wants to use this admission as an opportunity to get sober and change her lifestyle. She says that the patient states that before getting sick, she was "usually in a pretty good mood." She denies any psychiatric issues in terms of struggle with depression or anxiety and reports generally good energy levels, good sleep patterns, and good appetite. She denies that she is suicidal or homicidal. She denies any psychotic, delusional, or paranoid symptoms. She denies any excessive alcohol use complicating the clinical picture. She states that if she can get her cellulitis treated and then get sober going forward, she will be doing pretty good from both a medical and a psychiatric standpoint. MEDICATIONS: At the time of presentation, not on admission, the patient has been prescribed Librium 10 mg b.i.d. as needed on the unit. ALLERGIES: No known drug allergies. PAST MEDICAL HISTORY: The patient has right leg cellulitis. REVIEW OF SYSTEMS: Aside from skin, musculoskeletal, all other major organ systems are negative at this point in time for acute difficulties or complications. FAMILY, PSYCHIATRIC, AND CD HISTORY: The patient reports father has a history of alcoholism. PAST PSYCHIATRIC AND CD HISTORY: The patient denies any previous psychiatric hospitalizations or chemical dependency treatments. Again, she has been using meth "of and on for the past 3 years." She has been "shooting it" and last used about 4 days ago. Longest sobriety that has been problematic has been about for 3 weeks. She denies any previous suicide attempts, self-injurious behaviors, or eating disorder history. Denies any abuse issues while being raised. She did have a psychiatric medication history of being on Klonopin in the past for treatment of the anxiety. This medication did help her. She is a lgov-tpbe-dud-day smoker for the past 15 years. SOCIAL HISTORY: The patient is born in [place], [place] and raised in [place], [place]. She is the third of 4 siblings, having 2 sisters and 1 brother. The patient's parents were through her childhood and adolescence. Father is an [id number] ip network architect. Mother works as a business belt cleaner. The patient's highest level of education is 11th grade. 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 She has never been , not involved in any current relationships. She has a 10-year-old daughter from a previous relationship. She lives in [place], [place] with her daughter. Denies any prior service or any current legal difficulties. She is raised [employer]. She enjoys painting, spending time with her daughter, and biking. MENTAL STATUS EXAM: The patient is a 27-year-old white female in no apparent distress. Speech is of regular rate and rhythm. The patient is cognitively oriented. Psychomotor activity is within normal limits. There is no abnormal motor movements or tics observed. Gait is not observed nor is station observed. The patient is lying in bed for the purposes of the inpatient consult. Mood is "pretty good." Affect is consistent with stated mood and cooperative overall for the purposes of the inpatient consult. There is no behavioral or stated evidence of acute suicidal or homicidal ideation or acute psychotic, delusional, or paranoid symptoms. Thought processes are organized. There are no manic symptoms or loose associations evident. Judgment and insight appear unimpaired at this point in time. Motivation for help is good. VITAL SIGNS: Vitals at the time of consult 114/77, 85, 14, 98.3 degrees. IMPRESSION: [place] I. 1. Methamphetamine dependence. 2. Anxiety disorder, not otherwise specified, F41.9, resolved. [place] II: None. [place] III: Right leg cellulitis. [place] IV: Severe. [place] V: 65. PLAN: 1. Sobriety. 2. AA/NA rep to visit the patient while the patient is on the unit. 3. Pastoral guidance. 4. CD consult to assess the patient for possible treatment needs and need for surgery that could be made available to the patient as she tries to obtain sobriety. 5. Other medications are such as IV antibiotics and currently prescribed Librium as ordered by the patient's primary inpatient medical treatment team. 6. It does not appear that any psychiatric intervention is necessary at this point in time as the patient is not displaying any acute psychiatric pathology except for the desire to address her present chemical dependency issues. 7. We will continue to follow up with the patient on an as-needed basis while she remains on the inpatient medical unit at [facility] in [place], [place]. 8. We will follow up with the patient sooner if any complications in the interim. 9. Crisis plan is in place. RENITA /[id number]
--- NOTE | 2017-09-22 06:35 | PCM.PN ---
- General Info Date of Service: 09/22/17 Admission Dx/Problem (Free Text): Admission Diagnosis/Problem Admission Diagnosis/Problem Cellulitis Subjective Update: In to see Mishel. She is lying in bed sleeping. She has no concerns or complaints. Her leg continues to improve immensely. She is having no pain and has been ambulating. Dr. Amezcua saw her and recommended LAC see her and an addiction production support developer see her. She will be switched to IV doxycycline tonight and PO tomorrow in anticipation for discharge. Labs continue to improve. No nursing concerns. Functional Status: Reports: Pain Controlled, Tolerating Diet, Ambulating, Urinating. Denies: New Symptoms - Review of Systems General: Reports: No Symptoms. Denies: Weakness, Fatigue, Malaise HEENT: Reports: No Symptoms. Denies: Headaches Pulmonary: Reports: No Symptoms. Denies: Shortness of Breath Cardiovascular: Reports: No Symptoms. Denies: Chest Pain, Palpitations Gastrointestinal: Reports: No Symptoms. Denies: Abdominal Pain, Constipation, Diarrhea, Nausea, Vomiting Genitourinary: Reports: No Symptoms Musculoskeletal: Reports: No Symptoms Skin: Reports: No Symptoms Neurological: Reports: No Symptoms Psychiatric: Reports: No Symptoms - Patient Data Vitals - Most Recent: Last Vital Signs Temp 97.7 F 09/22/17 02:38 Pulse 83 09/22/17 02:38 Resp 16 09/22/17 02:38 BP 114/69 09/22/17 02:38 Pulse Ox 99 09/22/17 02:38 Weight - Most Recent: 114 lb 8 oz I&O - Last 24 Hours: Intake & Output 09/21/17 09/21/17 09/22/17 14:59 22:59 06:59 Intake Total 778 678 2298 Balance 369 106 0712 Lab Results Last 24 Hours: Laboratory Results - last 24 hr 09/21/17 09/21/17 09/21/17 Range/Units 05:57 05:57 05:57 WBC (3.98-10.04) K/mm3 RBC (3.98-5.22) M/mm3 Hgb (11.2-15.7) gm/L Hct (34.1-44.9) % MCV (79.4-94.8) fl MCH (25.6-32.2) pg MCHC (32.2-35.5) g/dl RDW Std Deviation (36.4-46.3) fL Plt Count (182-369) K/mm3 MPV (9.4-12.3) fl Neut % (Auto) (34.0-71.1) % Lymph % (Auto) (19.3-51.7) % [place] % (Auto) (4.7-12.5) % Eos % (Auto) (0.7-5.8) Baso % (Auto) (0.1-1.2) % Neut # (Auto) (1.56-6.13) K/mm3 Lymph # (Auto) (1.18-3.74) K/mm3 [place] # (Auto) (0.24-0.36) K/mm3 Eos # (Auto) (0.04-0.36) K/mm3 Baso # (Auto) (0.01-0.08) K/mm3 Sodium 139 (136-145) mEq/L Potassium 3.5 (3.5-5.1) mEq/L Chloride 105 (98-107) mEq/L Carbon Dioxide 25 (21-32) mEq/L Anion Gap 12.5 (5-15) BUN 10 (7-18) mg/dL Creatinine 0.6 (0.55-1.02) mg/dL Est Cr Clr Drug Dosing 111.65 mL/min Estimated GFR (MDRD) > 60 (>60) mL/min BUN/Creatinine Ratio 16.7 (14-18) Glucose 98 (74-106) mg/dL Lactic Acid 0.3 L (0.4-2.0) mmol/L Calcium 7.7 L (8.5-10.1) mg/dL Magnesium 2.0 (1.8-2.4) mg/dl C-Reactive Protein 7.9 H* (<1.0) mg/dL 09/22/17 Range/Units 05:51 WBC 6.57 (3.98-10.04) K/mm3 RBC 3.97 L (3.98-5.22) M/mm3 Hgb 12.1 (11.2-15.7) gm/L Hct 36.3 (34.1-44.9) % MCV 91.4 (79.4-94.8) fl MCH 30.5 (25.6-32.2) pg MCHC 33.3 (32.2-35.5) g/dl RDW Std Deviation 38.6 (36.4-46.3) fL Plt Count 262 (182-369) K/mm3 MPV 8.9 L (9.4-12.3) fl Neut % (Auto) 55.6 (34.0-71.1) % Lymph % (Auto) 33.0 (19.3-51.7) % [place] % (Auto) 8.7 (4.7-12.5) % Eos % (Auto) 2.1 (0.7-5.8) Baso % (Auto) 0.3 (0.1-1.2) % Neut # (Auto) 3.65 (1.56-6.13) K/mm3 Lymph # (Auto) 2.17 (1.18-3.74) K/mm3 [place] # (Auto) 0.57 H (0.24-0.36) K/mm3 Eos # (Auto) 0.14 (0.04-0.36) K/mm3 Baso # (Auto) 0.02 (0.01-0.08) K/mm3 Sodium (136-145) mEq/L Potassium (3.5-5.1) mEq/L Chloride (98-107) mEq/L Carbon Dioxide (21-32) mEq/L Anion Gap (5-15) BUN (7-18) mg/dL Creatinine (0.55-1.02) mg/dL Est Cr Clr Drug Dosing mL/min Estimated GFR (MDRD) (>60) mL/min BUN/Creatinine Ratio (14-18) Glucose (74-106) mg/dL Lactic Acid (0.4-2.0) mmol/L Calcium (8.5-10.1) mg/dL Magnesium (1.8-2.4) mg/dl C-Reactive Protein (<1.0) mg/dL Kelvin Results Last 24 Hours: Microbiology 09/20/17 21:30 Aerobic Blood Culture - Preliminary Blood - Venous NO GROWTH AFTER 1 DAY Anaerobic Blood Culture - Preliminary NO GROWTH AFTER 1 DAY 09/20/17 21:40 Aerobic Blood Culture - Preliminary Blood - Venous - Lab Draw NO GROWTH AFTER 1 DAY Anaerobic Blood Culture - Preliminary NO GROWTH AFTER 1 DAY Med Orders - Current: Current Medications Acetaminophen (Tylenol) 650 mg PO Q6H PRN PRN Reason: Pain/Fever Last Admin: 09/21/17 22:00 Dose: 650 mg Chlordiazepoxide HCl (Librium) 10 mg PO BID [facility] Last Admin: 09/21/17 21:40 Dose: 10 mg Enoxaparin Sodium (Lovenox) 40 mg SUBCUT DAILY [facility] Last Admin: 09/21/17 09:25 Dose: 40 mg Levofloxacin/Dextrose 750 mg/ (Premix) 150 mls @ 100 mls/hr IV Q24H [facility] Last Admin: 09/21/17 22:00 Dose: 100 mls/hr Vancomycin HCl 1 gm/ Sodium (Chloride) 250 mls @ 250 mls/hr IV Q12H [facility] Last Admin: 09/22/17 02:23 Dose: 250 mls/hr Ibuprofen (Motrin) 600 mg PO Q8H PRN PRN Reason: Pain Lorazepam (Ativan) 2 mg IVPUSH Q4H PRN PRN Reason: Seizures Metoprolol Tartrate (Lopressor) 5 mg IVPUSH Q6H PRN PRN Reason: tachycardia Miscellaneous Information (Remove Patch) 0 ea TRDERM DAILY [facility] Nicotine (Habitrol) 14 mg TRDERM DAILY [facility] Last Admin: 09/21/17 14:59 Dose: Not Given Ondansetron HCl (Zofran) 4 mg IVPUSH Q8H PRN PRN Reason: Nausea Ondansetron HCl (Zofran Odt) 4 mg PO Q6H PRN PRN Reason: nausea, able to take PO Saccharomyces Boulardii (Florastor) 250 mg PO BID [facility] Last Admin: 09/21/17 21:41 Dose: 250 mg Sodium Chloride (Saline Flush) 10 ml FLUSH ASDIRECTED PRN PRN Reason: Keep Vein Open Vancomycin HCl (Pharmacy To Dose - Vancomycin) 1 dose .XX ASDIRECTED [facility] Discontinued Medications Sodium Chloride (Normal Saline) 1,000 mls @ 999 mls/hr IV ASDIRECTED [facility] Last Admin: 09/20/17 21:28 Dose: 999 mls/hr Sodium Chloride (Normal Saline) 1,000 mls @ 999 mls/hr IV ASDIRECTED [facility] Vancomycin HCl 1 gm/ Sodium (Chloride) 250 mls @ 250 mls/hr IV ONETIME ONE Stop: 09/20/17 21:24 Last Admin: 09/20/17 21:51 Dose: 250 mls/hr Vancomycin HCl 0.25 gm/ Sodium (Chloride) 250 mls @ 250 mls/hr IV ONETIME ONE Stop: 09/20/17 21:24 Last Admin: 09/20/17 23:02 Dose: Not Given Sodium Chloride (Normal Saline) Confirm Administered Dose 250 mls @ as directed .ROUTE .STK-MED ONE Stop: 09/20/17 20:37 Last Admin: 09/20/17 20:55 Dose: Not Given Sodium Chloride (Normal Saline) Confirm Administered Dose 250 mls @ as directed .ROUTE .STK-MED ONE Stop: 09/20/17 22:10 Last Admin: 09/20/17 23:14 Dose: Not Given Levofloxacin/Dextrose 750 mg/ (Premix) 150 mls @ 100 mls/hr IV ONETIME ONE Stop: 09/21/17 01:41 Last Admin: 09/21/17 01:21 Dose: 100 mls/hr Vancomycin HCl (Vancocin) Confirm Administered Dose 1 gm .ROUTE .STK-MED ONE Stop: 09/20/17 20:36 Last Admin: 09/20/17 20:55 Dose: Not Given Vancomycin HCl (Vancomycin) Confirm Administered Dose 500 mg .ROUTE .STK-MED ONE Stop: 09/20/17 22:10 Last Admin: 09/20/17 23:00 Dose: Not Given - Exam Quality Assessment: DVT Prophylaxis General: Alert, Oriented, Cooperative, No Acute Distress HEENT: Pupils Equal, Pupils Reactive, EOMI, Mucous Membr. Moist/Huetter Neck: Supple, Trachea Midline, No JVD Lungs: Clear to Auscultation, Normal Respiratory Effort Cardiovascular: Regular Rate, Regular Rhythm GI/Abdominal Exam: Normal Bowel Sounds, Soft, Non-Tender, No Distention (Female) Exam: Deferred Back Exam: Normal Inspection, Full Range of Motion Extremities: Normal Range of Motion, Non-Tender, No Pedal Edema, Normal Capillary Refill, Redness. No: Increased Warmth Peripheral Pulses: 2+: Radial (L), Radial (R), Posterior Tibial (L), Posterior Tibial (R), Dorsalis Pedis (L), Dorsalis Pedis (R) Skin: Warm, Dry, Intact Wound/Incisions: No Drainage, Erythema Improving Neurological: No New Focal Deficit Psy/Mental Status: Alert, Normal Affect, Normal Mood - Problem List & Annotations (1) Cellulitis SNOMED Code(s): 613927743 Code(s): L03.90 - CELLULITIS, UNSPECIFIED Status: Acute Priority: High Current Visit: Yes Qualifiers: Site of cellulitis: extremity Site of cellulitis of extremity: lower extremity Laterality: right Qualified Code(s): L03.115 - Cellulitis of right lower limb (2) Methamphetamine addiction SNOMED Code(s): 809767175 Code(s): F15.20 - OTHER STIMULANT DEPENDENCE, UNCOMPLICATED Status: Acute Priority: High Current Visit: Yes (3) Tobacco use disorder SNOMED Code(s): 579943039 Code(s): F17.200 - NICOTINE DEPENDENCE, UNSPECIFIED, UNCOMPLICATED Status: Chronic Priority: Medium Current Visit: Yes (4) Multiple-resistant Staphylococcus aureus infection SNOMED Code(s): 131060202 Code(s): B95.7 - OTH STAPHYLOCOCCUS THE CAUSE OF DISEASES CLASSD [id number] Status: Acute Priority: High Current Visit: Yes - Problem List Review Problem List Initiated/Reviewed/Updated: Yes - My Orders Last 24 Hours: My Active Orders 09/21/17 07:23 CULTURE WOUND [RM] Routine 09/21/17 07:24 LORazepam [Ativan] 2 mg IVPUSH Q4H PRN 09/21/17 10:45 Vancomycin Pharmacy to Dose [Pharmacy to Dose - Vancomycin] 1 dose .XX ASDIRECTED 09/21/17 11:00 Saccharomyces Boulardii [Florastor] 250 mg PO BID 09/21/17 11:30 Vancomycin [Vancocin] 1 gm Sodium Chloride 0.9% [Normal Saline] 250 ml IV Q12H 09/21/17 11:37 Notify Provider Consults [RC] ASDIRECTED Consult for Substance Abuse [CONS] Routine Consult to Physician [CONS] Routine Consult to Surface Water Technician [CONS] Routine 09/21/17 11:39 Height and Weight [RC] 04 May Shower [RC] ASDIRECTED Oxygen Therapy [RC] PRN Up ad Orly [RC] ASDIRECTED VTE/DVT Education [RC] PER UNIT ROUTINE Vital Signs [RC] Q4HR Ondansetron [Zofran ODT] 4 mg PO Q6H PRN 09/21/17 11:40 Cardiac Monitoring [RC] CONTINUOUS Intake and Output [RC] 04,16 Pulse Oximetry [RC] PRN 09/21/17 13:30 Nicotine [Habitrol] 14 mg TRDERM DAILY 09/21/17 23:00 Levofloxacin/Dextrose 5%-Water [Levaquin in D5W 750 MG/150 ML] 750 mg Premix Bag 1 bag IV Q24H 09/21/17 Lunch Regular Diet [DIET] 09/22/17 05:51 BASIC METABOLIC PANEL,BMP [CHEM] AM CRP [C-REACTIVE PROTEIN] [CHEM] AM MAGNESIUM [CHEM] AM 09/23/17 05:11 BASIC METABOLIC PANEL,BMP [CHEM] AM CBC WITH AUTO DIFF [HEME] AM CRP [C-REACTIVE PROTEIN] [CHEM] AM MAGNESIUM [CHEM] AM 09/24/17 05:11 BASIC METABOLIC PANEL,BMP [CHEM] AM CBC WITH AUTO DIFF [HEME] AM CRP [C-REACTIVE PROTEIN] [CHEM] AM MAGNESIUM [CHEM] AM 09/25/17 05:11 BASIC METABOLIC PANEL,BMP [CHEM] AM CBC WITH AUTO DIFF [HEME] AM CRP [C-REACTIVE PROTEIN] [CHEM] AM MAGNESIUM [CHEM] AM - Plan Plan:: I/P: Acute: Cellulitis of right leg, improving -Apparent bug bite just below right patella region -Erythema, redness, swelling down right leg -Reports bug bite 4 days prior, chills and fever 2 days prior, nausea pain and swelling 1 day prior -Hx/o MRSA x2 -Current IV drug user but denies injections in her legs -Wound is not draining - culture if it starts -Levaquin and vancomycin started in ED -> stop; Switch to IV doxycycline tonight and PO doxycycline tomorrow -Probiotic -X-ray in ED shows no concerns for osteomyelitis -Consider GS consult if no improvement -Tylenol/NSAIDs for pain/fever -Positive MRSA screen -WBC 10.13-->6.72-->6.57 -CRP 11-->7.9-->4.7 -Blood cultures negative after one day Methamphetamine use -Reports daily 0.5mg methamphetamine use injected into her arms -Reports last dose was 09/19/17 -UDS positive for ampheatmines, methamphetamine, marijuana - sent for confirmation -Librium - discontinue and follow CIWAs -Monitor CIWA -2mg ativan PRN for seizure control -SW/Seven/SOLAGNE consult - Dr. Amezcua recommending LAC consult and addiction rep -Patient is open to talking about drug use and states she would like to talk to someone -Educated on medical dangers of IV drug use Tobacco use disorder -Daily nicotine patch - patient is refusing so far -Tobacco cessation counseling Chronic: None Plan Admit to medical floor on telemetry She is ambulatory so will hold off PT/OT for now Spiritual care consult Routine AM labs Other orders as above DVT Prophylaxis: Lovenox Code status: Full code; PCP: Kaylie Helm NP
[2017-09-22] MEDS ORDERED: Magnesium Sulfate/Water 2 GM in Premix Bag 1 BAG IV ONE (07:00)
[2017-09-22] MEDS: chlordiazePOXIDE 10 MG Cap PO SCH (09:00)
[2017-09-22] MEDS: Saccharomyces Boulardii (Probiotic) 250 MG Cap PO SCH ×2 (09:01→21:21)
[2017-09-22] MEDS: Enoxaparin 40 MG/0.4 ML Syringe SUBCUT SCH (09:02)
[2017-09-22] MEDS: Nicotine 14 MG/24 Hr Patch TRDERM SCH (09:03)
[2017-09-22] MEDS ORDERED: Doxycycline 100 MG in Sodium Chloride 0.9% 100 ML IV ONE (22:00)
--- NOTE | 2017-09-23 00:26 | CONS ---
CONSULTING PHYSICIAN: Ward Nascimento LAC DATE OF CONSULTATION: 09/22/2017 TIME: 10:15. The patient is a 27-year-old female admitted to [facility] ICU on 09/20/2017. An alcohol and drug evaluation were requested by her medical treatment team. The patient presented to [facility] with an abscess to her anterior medial knee and IV methamphetamine use disorder, severe. SOURCE OF INFORMATION: Patient records, staff report, prescription drug monitoring report, background research. PSYCHOSOCIAL HISTORY: The patient reports that she was born in [place], [place] and raised in [place], [place] by her biological parents who are still but live separately. The patient reports that her parents when she was 8 and that she has 2 sisters, a brother, and a half brother. She is second in the order. The patient reports that she attended [employer], but quit school in the 10th grade. She states that her parents did not care that she dropped out of school because she did what she pleased. The patient reports that she went to work for [employer] and was employed there for 4 years. 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 When she was 19 years old, she reports she went to work for [employer] in the [employer] department and she has been there ever since. The patient adds that she took the last month off from work because she needed a break; however, she intends on returning to work soon as she is having trouble paying her bills. She reports that she has never been but has 1 child, a daughter who is 10-1/2 years old. She states that she is in a current open relationship. She lives in a rental home with her daughter. The patient reports that her current stressors include her father has lung cancer, her financial situation, her child custody situation, and her mother moved to [place] this past year. SUBSTANCE ABUSE HISTORY: Nicotine: The patient reports that she began smoking cigarettes at about 14 years old and currently smokes a half pack a day. Cannabis: The patient reports that she began smoking cannabis at age 14, and within months, was smoking 2 to 3 bowls every night, discontinued until approximately 7 years ago when she began working at [employer]. She decreased her use to approximately 2 batty after work. She states this continued until about 4 years ago when she tried methamphetamine at a green party. The patient reports that she has been smoking cannabis since age 14 daily and her last use was 09/19/2017. She states that she does not know if she has withdrawals as she has never stopped smoking. Methamphetamine: The patient reports that she started smoking methamphetamine approximately 4 years ago. She states she had watched her friends use for years, but never felt the urge to try until one night when she had been drinking some wine and smoking cannabis. She states that for the first year for methamphetamine use, she was primarily smoking on the weekends, Monday, Monday, and Monday, going to about a gram in a 24-hour period. However, she states she does not really know how much she used as it was being given to her and there was an unlimited supply. 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 Approximately 3 years ago, she started to use methamphetamine intravenously and has been using about a 50 mL shot once a day to the present time. She states that there are times that she can remain clean. For example, if she goes to [place] to visit her grandma, she is able to stay clean for a week, possibly 2. She states that her last use was 09/19/2017 and she has a distinct pattern of use. She will shoot up at approximately 3 in the afternoon, stay up till 3 in the morning, and get up at 7 a.m. and start the day all over again. The patient reports that she has no withdrawals with the exception of preoccupation of using again, fatigue, and a craving for sweets. The patient denies use of any other illicit substance and reports that occasionally she will have a glass or 2 of wine, but that she does not like alcohol as her father was an alcoholic. The patient has had no prior substance abuse education or treatment and her criminal history is clear. A prescription drug monitoring report was pulled with no remarkable results. DIAGNOSES: The patient meets DSM-5 criteria for the following diagnoses. 1. F17.200, tobacco use disorder, severe. 2. F12.20, cannabis use disorder, severe. 3. F15.20, amphetamine use disorder, severe, methamphetamine type. ASAM DIMENSIONS: Dimension 1: Score 1. The patient can tolerate and cope with withdrawal discomfort and displays mild signs and symptoms of withdrawal that would interfere with daily functioning. Dimension 2: Score 1. The patient tolerates and alexx with physical discomfort and is able to get the services she needs. Dimension 3: Score 1+. The patient presents with mild risk of harm to self or others. The patient has been diagnosed by Dr. Amezcua with anxiety disorder, NOS. Dimension 4: Score 2. The patient displays verbal compliance but lacks consistent behaviors. The patient appears to be in stage 3 addiction. She verbalizes that she wants to quit using methamphetamine; however, she is not willing to participate in a structured controlled environment which is paramount in stage III addiction to achieve sobriety. Dimension 5: Score 3. The patient has little recognition and understanding of relapse and recidivism issues and displays a high vulnerability for further substance use. Dimension 6: Score 3. The patient is engaged in structured meaningful activity. However, she has been taking increasingly more time off work which jeopardizes her employment. She also lives with her boyfriend who supplies her methamphetamine and is a user himself. ASSESSMENT SUMMARY: The patient appears to be a nice young lady who battles a biological predisposition to addictions. Her home life growing up was troubled and she was a loner at school. She found friends and escape using cannabis in high school, and 4 years ago, she became addicted to methamphetamine as well. She has been using methamphetamine intravenously for the past 3 years on a daily basis with intermittent sobriety for short periods of time. Not only is her IV use causing medical complications, specifically, cellulitis and Staphylococcus aureus infection, but she also has a 10-year-old daughter who has been witnessing her lifestyle. This set up mechanic automatic line will be filing a 960 report with [facility]. The patient appears to be in stage III addiction manifesting with a psychological and physical addiction. She meets ASAM criteria for a level 3.1 clinically managed low intensity residential treatment. EDUAR Patel contacted [facility]; however, the facility does not have any available beds currently. The patient does not meet ASAM imminent danger criteria that would require a petition for involuntary inpatient commitment. All treatment options, both voluntary and involuntary were discussed with the patient. There was lengthy discussion between us about a petition for voluntary outpatient commitment. However, the patient must be willing to participate in this program for it to be successful. The patient verbalized that she was not amenable to this level of treatment and that she would prefer to find a treatment center on her own. The patient's autonomy was respected and EDUAR Patel provided the patient with information all area treatment facilities and support programs. Dr. Gunn and EDUAR Patel, were consulted regarding the evaluation and discharge plan. RECOMMENDATION: Level 3.1, clinically managed, low intensity residential treatment at any admitting facility. RENITA /[id number]
[2017-09-23 08:32] VITALS: BP 124/84
[2017-09-23] MEDS ORDERED: Doxycycline 100 MG Cap PO SCH (09:00)
--- NOTE | 2017-09-23 09:07 | PCM.DCSUM1 ---
Discharge Summary - Hospital Course Free Text/Narrative:: 27 year old female PMH of MRSA presents with RLE cellulitis. Received IV Vancomycin and Levoquin until senstivitiy of Staph Aureus was known. Was changed to doxycycline after sensitivity, she received 24 hours of IV doxy and was switched to the oral form. During her hospitalization the cellulitis quickly improved. because of a substance abuse history which includes IV meth use, the patient had a psych consult and substance abuse. CIWA protocol was also performed. She did not require ICU during her hospitalization. Tobacco cessation counseling was also performed by staff during her stay. She received a prescription for transdermal nicotine replacement. The patient was discharge to home on 09/23/2017. Diagnosis RLE cellulitis, SA sensitive to doxycycline Anxiety disorder, NOS Addiction, stage 3 (IV methamphetamine; formerly marijuana; tobacco) Follow up Dr Helm in 1 week or walk in clinic Substance abuse center Instructions Stop Tobacco/methamphetamine HPI Initial Comments: Mishel Weinstein is a 27 yo female who presented to our ED last night (09/20/17) with a bug bite on her right knee. She reports she noticed an abscess on the right anterior medial knee 4 days ago. Two days prior to presenting to the ED she noticed increased swelling and began to have fever and chills. the day before her ER visit she noticed nausea and worsening pain with ambulation. She can flex and extend the knee with no increased pa. She does have redness down her leg which is present for several days. Does have a history of MRSA infection 2. Denies any additional past history. Not taking any current medications. No surgical history. Denies any alcohol. She initially denies and IV drug use however later in her ED visit she does admit to IV methamphetamine use. he states she uses a half gram daily injecting it into either arm. Denies injecting into her feet, hands, legs, or any other body parts. in the ED temp was 98.8F. Pulse 108. Respirations 16. Blood pressure 134/ 85. Pulse ox 99%. Labs are obtained: WBC is elevated at 10.13. Hemoglobin low at 10.7. Hematocrit 32.2. She is normocytic. Platelet is good at 257, 000. Neutrophils elevated at 75.6%. sodium was good at 139. Potassium 3.6. Chloride 102. Carbon dioxide 29. Anion gap was good at 11.6. BUN is 17. Creatinine 0.8. GFR is greater than 60. Glucose is slightly high at 117. Calcium is 8.7. Total bilirubin 0.2. liver enzymes looked good with AST of 18, ALT at 26, alkaline phosphatase 78. CRP is quite high at 11. Protein good at 7.0. Albumin low at 3.2. MRSA screen was positive. Lactic acid was 0.5. Qualitative hCG was negative. Ethyl alcohol was 0.00. Urine drug screen was obtained and was positive for amphetamines, methamphetamine, and marijuana. This was sent for confirmation. She was started on Levaquin and vancomycin. She was given a 2 L saline bolus. There is no active drainage from the right knee. X-ray of the knee was obtained and reviewed by the ED providers. There is no concern for osteomyelitis noted. CIWA score was also obtained and was 0. he denies any medical or surgical history. She is a current every day smoker. She is a full code. Her PCP is Kaylie Helm. Right Knee - Related Data Diagnosis: Stroke: No - Discharge Data Discharge Date: 09/23/17 Discharge Disposition: Home, Self-Care 01 Condition: Good - Patient Summary/Data Consults: Consultations 09/21/17 11:37 Consult for Substance Abuse [CONS] Routine Consult to Physician [CONS] Routine Consult to Project Manager Interior Design [CONS] Routine - Patient Instructions Diet: Heart Healthy Diet Activity: As Tolerated Driving: May Drive Today Showering/Bathing: May Shower Notify Provider of: Fever, Increased Pain, Nausea and/or Vomiting - Discharge Plan Prescriptions/Med Rec: Doxycycline [Vibramycin] 100 mg PO BID #28 cap Ibuprofen [Motrin] 600 mg PO Q8H PRN #21 tablet PRN Reason: Pain Nicotine [Habitrol] 14 mg TRDERM DAILY #14 patch Saccharomyces Boulardii [Florastor] 250 mg PO BID #28 cap Home Medications: Home Meds Doxycycline [Vibramycin] 100 mg PO BID #28 cap 09/23/17 [Rx] Ibuprofen [Motrin] 600 mg PO Q8H PRN #21 tablet 09/23/17 [Rx] Nicotine [Habitrol] 14 mg TRDERM DAILY #14 patch 09/23/17 [Rx] Saccharomyces Boulardii [Florastor] 250 mg PO BID #28 cap 09/23/17 [Rx] Patient Handouts: Cellulitis, Adult, Chemical Dependency, Staphylococcal Infection Forms: ED Department Discharge Referrals: Kaylie Helm NP [Primary Care Provider] - (Please call clinic on Monday, and make an appointment to follow-up in a week with Kaylie.) - Discharge Summary/Plan Comment DC Time >30 min.: No Discharge Summary/Plan Comment: Acute: Cellulitis of right leg, improving -Apparent bug bite just below right patella region -Erythema, redness, swelling down right leg -Reports bug bite 4 days prior, chills and fever 2 days prior, nausea pain and swelling 1 day prior -Hx/o MRSA x2 -Current IV drug user but denies injections in her legs -Wound is not draining - culture if it starts -Levaquin and vancomycin started in ED -> stop; Switch to IV doxycycline tonight and PO doxycycline tomorrow -Probiotic -X-ray in ED shows no concerns for osteomyelitis -Consider GS consult if no improvement -Tylenol/NSAIDs for pain/fever -Positive MRSA screen -WBC 10.13-->6.72-->6.57 -CRP 11-->7.9-->4.7 -Blood cultures negative after one day Methamphetamine use -Reports daily 0.5mg methamphetamine use injected into her arms -Reports last dose was 09/19/17 -UDS positive for ampheatmines, methamphetamine, marijuana - sent for confirmation -Librium - discontinue and follow CIWAs -Monitor CIWA -2mg ativan PRN for seizure control -MARIO/Seven/LAC consult - Dr. Amezcua recommending LAC consult and addiction rep -Patient is open to talking about drug use and states she would like to talk to someone -Educated on medical dangers of IV drug use Tobacco use disorder -Daily nicotine patch - patient is refusing so far -Tobacco cessation counseling Chronic: None Plan Admit to medical floor on telemetry She is ambulatory so will hold off PT/OT for now Spiritual care consult Routine AM labs Other orders as above DVT Prophylaxis: Lovenox Code status: Full code; PCP: Kaylie Helm NP Additional CC's: Kaylie Helm - General Info Date of Service: 09/20/17 Functional Status: Reports: Pain Controlled, Tolerating Diet, Ambulating, Urinating - Review of Systems General: Reports: No Symptoms HEENT: Reports: No Symptoms Pulmonary: Reports: No Symptoms Cardiovascular: Reports: No Symptoms Gastrointestinal: Reports: No Symptoms Genitourinary: Reports: No Symptoms Musculoskeletal: Reports: No Symptoms Skin: Reports: No Symptoms Neurological: Reports: No Symptoms Psychiatric: Reports: No Symptoms - Patient Data Vitals - Most Recent: Last Vital Signs Temp 36.5 C 09/23/17 08:11 Pulse 79 09/23/17 08:11 Resp 16 09/23/17 08:11 BP 124/84 09/23/17 08:11 Pulse Ox 99 09/23/17 08:11 Weight - Most Recent: 51.437 kg I&O - Last 24 hours: Intake & Output 09/22/17 09/23/17 09/23/17 22:59 06:59 14:59 Intake Total 750 300 Balance 750 300 Lab Results - Last 24 hrs: Laboratory Results - last 24 hr 09/23/17 09/23/17 Range/Units 05:50 05:50 WBC 6.20 (3.98-10.04) K/mm3 RBC 4.48 (3.98-5.22) M/mm3 Hgb 13.5 (11.2-15.7) gm/L Hct 40.7 (34.1-44.9) % MCV 90.8 (79.4-94.8) fl MCH 30.1 (25.6-32.2) pg MCHC 33.2 (32.2-35.5) g/dl RDW Std Deviation 38.4 (36.4-46.3) fL Plt Count 294 (182-369) K/mm3 MPV 9.2 L (9.4-12.3) fl Neut % (Auto) 54.9 (34.0-71.1) % Lymph % (Auto) 34.2 (19.3-51.7) % [place] % (Auto) 7.9 (4.7-12.5) % Eos % (Auto) 2.4 (0.7-5.8) Baso % (Auto) 0.3 (0.1-1.2) % Neut # (Auto) 3.40 (1.56-6.13) K/mm3 Lymph # (Auto) 2.12 (1.18-3.74) K/mm3 [place] # (Auto) 0.49 H (0.24-0.36) K/mm3 Eos # (Auto) 0.15 (0.04-0.36) K/mm3 Baso # (Auto) 0.02 (0.01-0.08) K/mm3 Sodium 136 (136-145) mEq/L Potassium 4.3 (3.5-5.1) mEq/L Chloride 100 (98-107) mEq/L Carbon Dioxide 26 (21-32) mEq/L Anion Gap 14.3 (5-15) BUN 8 (7-18) mg/dL Creatinine 0.6 (0.55-1.02) mg/dL Est Cr Clr Drug Dosing 112.34 mL/min Estimated GFR (MDRD) > 60 (>60) mL/min BUN/Creatinine Ratio 13.3 L (14-18) Glucose 93 (74-106) mg/dL Calcium 8.9 (8.5-10.1) mg/dL Magnesium 1.8 (1.8-2.4) mg/dl C-Reactive Protein 3.2 H* (<1.0) mg/dL LUZ MARINA Results - Last 24 hrs: Microbiology 09/20/17 21:30 Aerobic Blood Culture - Preliminary Blood - Venous NO GROWTH AFTER 2 DAYS Anaerobic Blood Culture - Preliminary NO GROWTH AFTER 2 DAYS 09/20/17 21:40 Aerobic Blood Culture - Preliminary Blood - Venous - Lab Draw NO GROWTH AFTER 2 DAYS Anaerobic Blood Culture - Preliminary NO GROWTH AFTER 2 DAYS Med Orders - Current: Current Medications Acetaminophen (Tylenol) 650 mg PO Q6H PRN PRN Reason: Pain/Fever Last Admin: 09/21/17 22:00 Dose: 650 mg Doxycycline Hyclate (Vibramycin) 100 mg PO BID [facility] Enoxaparin Sodium (Lovenox) 40 mg SUBCUT DAILY [facility] Last Admin: 09/22/17 09:02 Dose: 40 mg Ibuprofen (Motrin) 600 mg PO Q8H PRN PRN Reason: Pain Lorazepam (Ativan) 2 mg IVPUSH Q4H PRN PRN Reason: Seizures Metoprolol Tartrate (Lopressor) 5 mg IVPUSH Q6H PRN PRN Reason: tachycardia Miscellaneous Information (Remove Patch) 0 ea TRDERM DAILY [facility] Last Admin: 09/22/17 09:04 Dose: Not Given Nicotine (Habitrol) 14 mg TRDERM DAILY [facility] Last Admin: 09/22/17 09:03 Dose: Not Given Ondansetron HCl (Zofran) 4 mg IVPUSH Q8H PRN PRN Reason: Nausea Ondansetron HCl (Zofran Odt) 4 mg PO Q6H PRN PRN Reason: nausea, able to take PO Saccharomyces Boulardii (Florastor) 250 mg PO BID [facility] Last Admin: 09/22/17 21:21 Dose: 250 mg Sodium Chloride (Saline Flush) 10 ml FLUSH ASDIRECTED PRN PRN Reason: Keep Vein Open Discontinued Medications Chlordiazepoxide HCl (Librium) 10 mg PO BID [facility] Last Admin: 09/22/17 09:00 Dose: 10 mg Sodium Chloride (Normal Saline) 1,000 mls @ 999 mls/hr IV ASDIRECTED [facility] Last Admin: 09/20/17 21:28 Dose: 999 mls/hr Sodium Chloride (Normal Saline) 1,000 mls @ 999 mls/hr IV ASDIRECTED [facility] Vancomycin HCl 1 gm/ Sodium (Chloride) 250 mls @ 250 mls/hr IV ONETIME ONE Stop: 09/20/17 21:24 Last Admin: 09/20/17 21:51 Dose: 250 mls/hr Vancomycin HCl 0.25 gm/ Sodium (Chloride) 250 mls @ 250 mls/hr IV ONETIME ONE Stop: 09/20/17 21:24 Last Admin: 09/20/17 23:02 Dose: Not Given Sodium Chloride (Normal Saline) Confirm Administered Dose 250 mls @ as directed .ROUTE .STK-MED ONE Stop: 09/20/17 20:37 Last Admin: 09/20/17 20:55 Dose: Not Given Sodium Chloride (Normal Saline) Confirm Administered Dose 250 mls @ as directed .ROUTE .STK-MED ONE Stop: 09/20/17 22:10 Last Admin: 09/20/17 23:14 Dose: Not Given Levofloxacin/Dextrose 750 mg/ (Premix) 150 mls @ 100 mls/hr IV ONETIME ONE Stop: 09/21/17 01:41 Last Admin: 09/21/17 01:21 Dose: 100 mls/hr Levofloxacin/Dextrose 750 mg/ (Premix) 150 mls @ 100 mls/hr IV Q24H [facility] Last Admin: 09/21/17 22:00 Dose: 100 mls/hr Vancomycin HCl 1 gm/ Sodium (Chloride) 250 mls @ 250 mls/hr IV Q12H [facility] Stop: 09/22/17 12:30 Last Admin: 09/22/17 12:24 Dose: 250 mls/hr Magnesium Sulfate 2 gm/ Premix 50 mls @ 25 mls/hr IV ONETIME ONE Stop: 09/22/17 08:59 Last Admin: 09/22/17 08:54 Dose: 25 mls/hr Doxycycline Hyclate 100 mg/ (Sodium Chloride) 100 mls @ 100 mls/hr IV ONETIME ONE Stop: 09/22/17 22:59 Last Admin: 09/22/17 21:21 Dose: 100 mls/hr Vancomycin HCl (Vancocin) Confirm Administered Dose 1 gm .ROUTE .STK-MED ONE Stop: 09/20/17 20:36 Last Admin: 09/20/17 20:55 Dose: Not Given Vancomycin HCl (Vancomycin) Confirm Administered Dose 500 mg .ROUTE .STK-MED ONE Stop: 09/20/17 22:10 Last Admin: 09/20/17 23:00 Dose: Not Given Vancomycin HCl (Pharmacy To Dose - Vancomycin) 1 dose .XX ASDIRECTED DAMIAN - Exam Quality Assessment: Reports: DVT Prophylaxis General: Reports: Alert, Oriented, Cooperative, No Acute Distress HEENT: Reports: Pupils Equal, Pupils Reactive, EOMI Neck: Reports: Trachea Midline, No JVD Lungs: Reports: Clear to Auscultation, Normal Respiratory Effort Cardiovascular: Reports: Regular Rate, Regular Rhythm GI/Abdominal Exam: Normal Bowel Sounds, Soft, Non-Tender, No Organomegaly, No Distention (Female) Exam: Deferred Rectal (Female) Exam: Deferred Back Exam: Reports: Normal Inspection Extremities: Normal Inspection, Normal Range of Motion, Non-Tender, No Pedal Edema, Normal Capillary Refill Wound/Incisions: Reports: Healing Well, No Drainage, Erythema Improving Neurological: Reports: No New Focal Deficit Psy/Mental Status: Reports: Alert, Normal Affect, Normal Mood
[2017-09-23] MEDS: Saccharomyces Boulardii (Probiotic) 250 MG Cap PO SCH (09:26)
[2017-09-23] MEDS: Nicotine 14 MG/24 Hr Patch TRDERM SCH (09:27)
[2017-09-23] MEDS: Enoxaparin 40 MG/0.4 ML Syringe SUBCUT SCH (09:28)
== END 2017-09-23 10:40 | disposition home or self-care (01) | DRG 603 ==
LOC: JD.ED 20:07 → JD.MS 23:12
PROVIDERS: ADMIT Internal Medicine Cardiovascular Disease; ATTEND Internal Medicine Cardiovascular Disease
DX: L03.115 Cellulitis of right lower limb (principal); F15.20 Other stimulant dependence, uncomplicated; F41.9 Anxiety disorder, unspecified; F12.20 Cannabis dependence, uncomplicated; H54.7 Unspecified visual loss; F17.210 Nicotine dependence, cigarettes, uncomplicated; L02.415 Cutaneous abscess of right lower limb; Z22.322 Carrier or suspected carrier of Methicillin resistant Staphylococcus aureus; Z86.14 Personal history of Methicillin resistant Staphylococcus aureus infection
CPT/HCPCS: 36415; 73564-26-RT; 73564-RT; 80048; 80053; 80306; 83605; 83735; 84703; 85025; 86140; 87040; 87641; 96365; 99285-25; A9270; A9270-GY; G0480; J1650; J1956; J3370; J3475; J7030; J7040; J7050

== ENCOUNTER 2024-04-25 03:11 | Emergency (ER) | payer SELFPAY ==
[2024-04-25 03:28] VITALS: BP 159/109; PULSE 110
[2024-04-25] MEDS: Ketorolac 60 MG/2 ML SDV IM ONE (04:34)
[2024-04-25] MEDS: Amoxicillin/Clavulanate K 875-125 MG Tab PO SCH (04:37)
== END 2024-04-25 04:41 | disposition home or self-care (01) ==
LOC: JD.ED 03:11
DX: K04.7 Periapical abscess without sinus (principal); F17.210 Nicotine dependence, cigarettes, uncomplicated; Z79.899 Other long term (current) drug therapy
CPT/HCPCS: 96372; 99283; A9270; J1885